=== PATIENT | male | born 1965 | race Caucasian/White ===

== ENCOUNTER 2022-02-01 10:51 | Observation (INO) | payer SELFPAY ==
[2022-02-01] VITALS (11 sets, daily range): BP systolic 116–127; BP diastolic 67–76; PULSE 52–78; RESP 16–26; TEMP 36.1–36.4; O2SAT 95–100; BMI 23.7
--- NOTE | 2022-02-01 11:02 | W.ED.CHESTPA ---
HPI - Chest Pain General: Chief Complaint: Chest Pain Stated Complaint: cp Time Seen by Provider: 02/01/22 11:02 History of Present Illness: Mr. Maldonado is a 56-year-old male with history of tobaccoism presenting to the emergency department due to chest pain. Onset of symptoms was during rest just after a break at work at approximately 10 or 1030 this morning. He reports sudden onset of severe squeezing chest pain with radiation down both arms. Associated cold feeling and shortness of breath as well as mild nausea. Course has persisted. No similar episodes in the past. No other specific changes in health, exacerbating, or alleviating factors identified. Onset (ago): minute(s) Timing of current episode: constant Prior episodes: No Onset: during rest Pain location: substernal Pain radiation: right arm and left arm Severity: severe Quality: tightness and heaviness Relieving factors: nothing Exacerbating factors: exertion Associated symptoms: Reports diaphoresis, dyspnea and nausea Review of Systems General: Reports: 10 or more systems reviewed and unremarkable except in HPI and below Const: Reports: diaphoresis Resp: Reports: dyspnea GI: Reports: nausea PFSH ED PFSH: Medical History No significant past medical history Surgical History H/O knee surgery Family History Other CAD (coronary artery disease) Social History Smoking and tobacco status: current every day smoker Physical Exam Const: COMMON NORMALS: alert GENERAL APPEARANCE: cooperative and well developed HENMT: COMMON NORMALS: normocephalic and atraumatic HEAD & SCALP: normocephalic and atraumatic THROAT: posterior oropharynx normal Eye: COMMON NORMALS: conjunctivae normal CONJUNCTIVA: Yes conjunctivae normal SCLERA: sclerae normal Neck/C-Spine: COMMON NORMALS: supple GENERAL: Yes trachea midline Resp: COMMON NORMALS: clear to auscultation bilaterally EFFORT & INSPECTION: Yes able to speak in complete sentences AUSCULTATION: clear to auscultation bilaterally Cardio: COMMON NORMALS: regular rate and regular rhythm RATE: regular rate RHYTHM: regular rhythm GI: COMMON NORMALS: Soft to palpation PALPATION: Yes Soft to palpation and No Tenderness to palpation present (GI) Extremity: GENERAL: Yes normal exam except as noted and No edema Neuro: COMMON NORMALS: moves all extremities SENSORIUM/ORIENTATION: Yes alert and No Orientation impaired Psych: COMMON NORMALS: mental status grossly normal and Normal thought process present THOUGHT PROCESS: Normal thought process present Course Vital Signs: Vital signs: Vital Signs Temperature 98.8 F 02/03/22 04:30 Pulse Rate 52 L 02/03/22 12:15 Respiratory Rate 16 02/03/22 12:15 Blood Pressure 104/65 02/03/22 12:15 Pulse Oximetry 97 02/03/22 12:15 Oxygen Delivery Me thod 02/03/22 08:00 MDM - Chest Pain Medical Decision Making 56-year-old gentleman presenting with chest pain. EKG shows sinus rhythm with nonspecific ST segment abnormalities. No STEMI. Labs notable for normal hematologic and metabolic panel. Delta troponin at 2 hours is negative. D-dimer elevated. Chest x-ray with no lobar consolidation or pneumothorax. During ED course patient received aspirin, nitroglycerin, and morphine. Upon reassessment patient continues to have chest discomfort. Given reported history as well as persistent chest pain agree that the patient requires further inpatient management for cardiac evaluation. He is not low risk by heart score. The results of ED evaluation were discussed with the patient including plan for admission due to requirement for level of care not available if discharged to prevent significant worsening/deterioration. Patient agreeable with plan. Discussed with hospitalist service who was agreeable to admit patient. Medical Records I reviewed the patient's medical records. Lab Data I reviewed the patient's lab results. 02/02/22 05:07 02/03/22 05:37 Radiology Impressions Chest X-Ray 02/01/22 11:08 Impression: Negative chest. Chest CTA 02/01/22 20:01 IMPRESSION: 1. No pulmonary embolism or pneumonia. 2. In the right lower lobe there is an 8 mm noncalcified nodule. 3. Bronchial wall thickening suggests bronchitis. For patients at low risk (minimal or absent history of smoking and of other known risk factors), recommend CT Chest at 6-12 months, then consider CT Chest at 18-24 months. For patients at high risk (history of smoking or of other known risk factors), recommend CT Chest at 6-12 months, then CT Chest at 18-24 months. (Reference: Fior) References: Fior Nickerson, et al. Guidelines for Management of Incidental Pulmonary Nodules Detected on CT Images: From the Fleischner Society 2017. Radiology. 2017;284(1):228-243. Laboratory Results WBC 6.6 10^3/uL (4.0-10.0) 02/01/22 11:18 RBC 4.49 10^6/uL (4.1-5.3) 02/01/22 11:18 Hgb 13.4 g/dL (11.7-16.6) 02/01/22 11:18 Hct 39.7 % (42.0-52.0) L 02/01/22 11:18 MCV 88.4 fl (80-94) 02/01/22 11:18 MCH 29.8 pg (28.0-34.0) 02/01/22 11:18 MCHC 33.8 g/dL (30.0-36.0) 02/01/22 11:18 RDW 12.5 % (12.1-15.1) 02/01/22 11:18 Plt Count 219 10^3/cmm (130-400) 02/01/22 11:18 MPV 9.0 fL (7.4-10.4) 02/01/22 11:18 Neut % (Auto) 53.0 % 02/01/22 11:18 Lymph % (Auto) 33.0 % 02/01/22 11:18 [place] % (Auto) 10.3 % 02/01/22 11:18 Eos % (Auto) 2.9 % 02/01/22 11:18 Baso % (Auto) 0.3 % 02/01/22 11:18 Neut # (Auto) 3.49 10^3/uL (1.8-7.7) 02/01/22 11:18 Lymph # (Auto) 2.2 10^3/uL (0.8-4.8) 02/01/22 11:18 [place] # (Auto) 0.7 10^3/uL (0.2-0.9) 02/01/22 11:18 Eos # (Auto) 0.2 10^3/uL (0.0-0.8) 02/01/22 11:18 Baso # (Auto) 0.0 10^3/uL (0.0-0.1) 02/01/22 11:18 Nucleated RBC % (auto) 0 % 02/01/22 11:18 Nucleated RBCs # 0.0 /100WBC 02/01/22 11:18 Sodium 138 mmol/L (136-145) 02/01/22 11:18 Potassium 3.5 mmol/L (3.5-5.1) 02/01/22 11:18 Chloride 104 mmol/L (98-107) 02/01/22 11:18 Carbon Dioxide 24 mmol/L (22-29) 02/01/22 11:18 Anion Gap 13.5 (5-19) 02/01/22 11:18 BUN 17 mg/dL (6-20) 02/01/22 11:18 Creatinine 1.0 mg/dL (0.7-1.2) 02/01/22 11:18 GFR Calculation 76.7 mL/min (90-130) L 02/01/22 11:18 Glucose 88 mg/dL (65-115) 02/01/22 11:18 Calculated Osmolality 287 mOsm/kg (285-295) 02/01/22 11:18 Calcium 9.7 mg/dL (8.5-10.5) 02/01/22 11:18 Total Bilirubin 0.4 mg/dL (0.15-1.2) 02/01/22 11:18 AST 15 U/L (0-40) 02/01/22 11:18 ALT 13 U/L (0-41) 02/01/22 11:18 Alkaline Phosphatase 69 U/L (40-130) 02/01/22 11:18 Troponin T Baseline 8 ng/L (0-15) 02/01/22 11:18 Troponin T 120 Minute 7.20 ng/L (0-15) 02/01/22 13:15 Delta Troponin T -0.8 ABS# (0-10) L 02/01/22 13:15 NT-Pro-B Natriuret Pep 15 pg/mL (0-125) 02/01/22 11:18 Total Protein 6.5 g/dL (6.6-8.7) L 02/01/22 11:18 Albumin 4.3 g/dL (3.5-5.2) 02/01/22 11:18 Globulin 2.2 g/dL (1.3-4.6) 02/01/22 11:18 Lipase 43 U/L (13-60) 02/01/22 11:18 Discharge Plan Discharge Patient Disposition: Placed in Observation Admit Provider: Harry Rivera Clinical Impression: Chest pain Coding Level of Care Code ED Medical Claims Representative for Chg Fwd Exam Comprehensive
--- NOTE | 2022-02-01 11:08 | XR_ITS ---
WS: [id number] Portable AP upright chest, 02/01/2022 Clinical Data: cp Comparison: None. Findings: No nodules, masses or effusions are seen. The heart is normal. The pulmonary vascularity is not increased. No pneumonia or pneumothorax is seen. There are monitor leads on the chest wall. Ther e is an apparent skinfold overlying the right apex. XR/XR chest 1V portable [id number] Impression: Negative chest.
--- NOTE | 2022-02-01 11:08 | ECG_ITS ---
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 Measurements Intervals [place] Rate: 72 P: 75 NC: 200 QRS: 84 QRSD: 86 T: 86 QT: 390 QTc: 428 Interpretive Statements SINUS RHYTHM SEPTAL MYOCARDIAL INFARCTION , OF INDETERMINATE AGE [40+ ms Q WAVE IN V1/V2] No previous ECG available for comparison Electronically Signed On 02-01-2022 15:02:19 BLADDER TIER by Dalton Gillette M.D. [email or web address] [email or web address]/store/[id number] f
[2022-02-01] MEDS: aspirin 81 mg Chew Tablet 324 MG PO (11:24)
[2022-02-01 11:27] LABS: Basophils % 0.3 %; Eosinophils # 0.2 10^3/uL (0.0-0.8); Eosinophils % 2.9 %; Hematocrit 39.7 % (42.0-52.0); Hemoglobin 13.4 g/dL (11.7-16.6); Lymphocytes # 2.2 10^3/uL (0.8-4.8); Mean Corpuscular HGB Conc 33.8 g/dL (30.0-36.0); Mean Corpuscular Hemoglobin 29.8 pg (28.0-34.0); Mean Corpuscular Volume 88.4 fl (80-94); Monocytes # 0.7 10^3/uL (0.2-0.9); Monocytes % 10.3 %; Neutrophils # 3.49 10^3/uL (1.8-7.7); Nucleated Red Blood Cells % 0 %; Platelet Count 219 10^3/cmm (130-400); Red Blood Count 4.49 10^6/uL (4.1-5.3); Red Cell Distribution Width 12.5 % (12.1-15.1); White Blood Count 6.6 10^3/uL (4.0-10.0)
[2022-02-01] MEDS: nitroglycerin 0.4 mg sublingual Tablet SUBLINGUAL ×2 (11:28→16:57)
[2022-02-01] MEDS: morphine 4 mg/mL SDV 1 mL IVP ×2 (11:28→14:04)
[2022-02-01 11:58] LABS: Troponin(5th) Baseline 8 ng/L (0-15)
[2022-02-01 12:06] LABS: Alanine Aminotransferase 13 U/L (0-41); Albumin Level 4.3 g/dL (3.5-5.2); Alkaline Phosphatase 69 U/L (40-130); Anion Gap 13.5 (5-19); Aspartate Amino Transferase 15 U/L (0-40); Blood Urea Nitrogen 17 mg/dL (6-20); Calcium 9.7 mg/dL (8.5-10.5); Carbon Dioxide 24 mmol/L (22-29); Chloride 104 mmol/L (98-107); Globulin 2.2 g/dL (1.3-4.6); Glomerular Filtration Rate 76.7 mL/min (90-130); Glucose 88 mg/dL (65-115); Lipase 43 U/L (13-60); NT Pro B Type Natriuretic Pept 15 pg/mL (0-125); Osmolality Calculated 287 mOsm/kg (285-295); Potassium 3.5 mmol/L (3.5-5.1); Sodium 138 mmol/L (136-145); Total Bilirubin 0.4 mg/dL (0.15-1.2); Total Protein 6.5 g/dL (6.6-8.7)
--- NOTE | 2022-02-01 12:14 | ECG_ITS ---
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 Measurements Intervals [place] Rate: 61 P: 61 SC: 195 QRS: 78 QRSD: 98 T: 70 QT: 416 QTc: 420 Interpretive Statements SINUS RHYTHM Compared to ECG 02/01/2022 11:01:57 Myocardial infarct finding no longer present Electronically Signed On 02-01-2022 15:06:12 GEOSPATIAL ENGINEER by Dalton Gillette M.D. [email or web address] hospitalXan[facility].[employer]/store/OM/[id number]
[2022-02-01 14:29] LABS: Troponin 5 2HR Delta -0.8 ABS# (0-10)
--- NOTE | 2022-02-01 14:46 | P.HP_ITS ---
Providers/Chief Complaint Primary Care Provider: Corina Bustillo MD Chief Complaint: cp History of Present Illness Shawn Maldonado is a 56 year old male who present to the hospital for treatment of chest pain. 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 He started experiencing chest pain which he described as chest tightness it did not get better until he received morphine on nitroglycerin. Troponins negative EKG without ischemic changes, I have requested Dr. Yancey to see him as he would require coronary angiogram he would not need cardiac stress test, with nitroglycerin he does get bradycardic. Patient states he has been smoking 1-1/2 pack of cigarettes for last 40 years Patient stating family history positive for aortic stenosis and his father of complications related to aortic stenosis mother of coronary disease in her 80s. Review of Systems Const: Denies: fever(s) Eyes: Denies: change in vision ENMT: Denies: throat pain Card: Reports: chest pain Resp: Denies: dyspnea GI: Denies: abdominal pain : Denies: flank pain Musc: Denies: neck pain Skin/Breast: Denies: rash Neuro: Denies: headache(s) Psych: Reports: anxiety Endo: Denies: polyuria Arnoldo/Lymph: Denies: easy bruising All/Imm: Denies: urticaria Medications/Allergies Home Medications Medication Instructions Recorded Confirmed Last Taken Type Fish Mox 250 Mg 1 tab PO BID 02/01/22 02/01/22 02/01/22 History Allergies Allergy/AdvReac Type Severity Reaction Status Date / Time No Known Allergies Allergy Unverified 02/01/22 11:26 PFSH Acute PFSH: Medical History No significant past medical history Surgical History H/O knee surgery Family History Other CAD (coronary artery disease) Social History Smoking and tobacco status: current every day smoker Vitals/I&O/Wt Last Vital Signs Temp 97.0 F L 02/01/22 11:01 Pulse 60 02/01/22 11:40 Resp 16 02/01/22 14:04 BP 118/67 02/01/22 11:40 Pulse Ox 98 02/01/22 14:04 O2 Del Method 02/01/22 11:15 Physical Exam Narrative: Patient is laying supine Currently complaining chest pain is 2/10 Hemodynamically stable Bradycardic Awake and alert Nonfocal neuro exam at the bedside Looks euvolemic S1, S2 Abdomen soft No audible stridor or wheezing Data : 02/01/22 11:18 02/01/22 11:18 A&P Assessment and plan (1) Unstable angina: Plan Unstable angina Patient will need coronary angiogram Atypical chest pain Troponins unremarkable EKG without ischemic or infarct changes Check D-dimer Patient is getting bradycardic with Nitro, would avoid for now Will add normal saline Patient is stating he is DNR/DNI, he is stating in case of cardiac arrest he does not want to be put on a ventilator, he does not want chest compressions or defibrillation His is at the bedside N.p.o. after midnight Dr. Rivera has been consulted DVT prophylaxis Lovenox Active smoker Attestations Medical Necessity Statement*: Anticipating more than 2 midnights Time Spent in Patient Care: 40 Coding Level of Care Code Acute Workforce Management Analyst for Rolando Aguayo Diagnoses Unstable angina I20.0
--- NOTE | 2022-02-01 14:48 | USCV_ITS ---
Shawn Maldonado Age: 56 Gender: M : 1965 Exam Date: 02/01/2022 15:16 Ordering Phys: Ana Hall MD Technologist: JORGE [place] [facility] [place]: UA, CHEST PAIN BP: 112 / 67 HR: 56 Rhythm: Sinus Technical Quality: Adequate MEASUREMENTS (Male / Female) Normal Values 2D ECHO LVOT Diameter 2.0 cm LV Ejection Fraction MOD 2C 70.3 % LV Ejection Fraction 2C AL 69.6 % LA Diameter 2.5 cm LA Width 2.9 cm LA Height 4.0 cm RA Width 3.6 cm RA Height 3.9 cm Aorta at Sinotubular Diameter 2.7 cm IVC Diameter 1.7 cm M-MODE Aortic Annulus Diameter 3.4 cm LA Ao Ratio MM 0.8 MV E Point Septal Separation 0.3 cm DOPPLER AV Peak Velocity 120.3 cm/s LVOT Peak Velocity 110.0 cm/s AV Area Cont Eq vti 3.1 cm squared AV Area Cont Eq pk 2.9 cm squared MV Peak Velocity 117.0 cm/s MV Area PHT 3.1 cm squared Mitral E to A Ratio 1.2 MV E' Velocity 63.0 cm/s Mitral E to MV E' Ratio 9.7 Mitral E to LV E' Lateral Ratio 8.5 Mitral E to LV E' Septal Ratio 11.5 TR Peak Velocity 167.1 cm/s TR Peak Gradient 11.2 mmHg TR Mean Velocity 138.1 cm/s TR Mean Gradient 8.0 mmHg TR Velocity Time Integral 57.0 cm TV Peak E Velocity 68.0 cm/s Right Atrial Pressure 3.0 mmHg Pulmonary Artery Systolic Pressu 14.2 mmHg FINDINGS Left Ventricle Normal left ventricular size and systolic function, EF 70 %. Mild hypokinesia of the basal inferior wall segment Right Ventricle The right ventricle is normal in size and function. Right Atrium The right atrium is normal in size. Left Atrium The left atrium is normal in size. Mitral Valve Mild mitral valve regurgitation. Aortic Valve No gross abnormalities noted Tricuspid Valve No gross abnormalities noted Pulmonic Valve No gross abnormalities noted Pericardium Normal pericardium without effusion. Aorta Normal ascending aorta dimension. IVC Normal inferior vena cava. CONCLUSIONS Normal left ventricular size and systolic function, EF 70 %. Mild hypokinesia of the basal inferior wall segment. Mild mitral valve regurgitation. There is no pericardial effusion. There are no intracardiac masses. Normal cardiac chamber sizes. No significant stenotic or relative lesions. No similar previous studies are available for comparison Dr Harry Rivera MD [facility] (Electronically Signed) Final Date: 01 February 2022 19:43 S
--- NOTE | 2022-02-01 15:17 | PC.NURSE ---
report called to Annalisa on med surg 1515. will take pt upstairs on monitor after echo is complete
[2022-02-01] MEDS: morphine IR 15 mg Tablet PO ×2 (16:58→22:34)
[2022-02-01] MEDS: enoxaparin 40 mg/0.4 mL Syringe SUBCUT (16:59)
[2022-02-01 17:04] LABS: Estmated Average Glucose 88; Hemoglobin A1C 4.7 % (4.0-6.0)
--- NOTE | 2022-02-01 17:08 | ECG_ITS ---
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 Measurements Intervals [place] Rate: 51 P: 64 IL: 207 QRS: 73 QRSD: 118 T: 74 QT: 447 QTc: 413 Interpretive Statements SINUS BRADYCARDIA MODERATE INTRAVENTRICULAR CONDUCTION DELAY [110+ ms QRS DURATION] Compared to ECG 02/01/2022 12:14:14 Intraventricular conduction delay now present Sinus rhythm no longer present Electronically Signed On 02-03-2022 15:17:30 OPERATIONS PLANNER by Harry Rivera M.D. [email or web address] hospitalBetter [facility].[employer]/store/OM/[id number]
--- NOTE | 2022-02-01 17:16 | PC.NURSE ---
nitro stat 0.4 mg with msir reieves pts chest pain
[2022-02-01 17:55] LABS: Troponin 5 6HR 7.08 ng/L (0-15)
--- NOTE | 2022-02-01 17:59 | PC.NURSE ---
PT HEART RATE 54-58 DR ESPINOZA NOTIFIED VERBAL TO HOLD NITRO PASTE
[2022-02-01 18:05] LABS: Troponin 5 6HR Delta -0.92 ng/L (0-12)
[2022-02-01] MEDS: sodium chloride 0.9% 1,000 ML 75 ML IV (18:52)
[2022-02-01 19:06] LABS: D Dimer 1.33 ug/mIFEU (0-0.59)
[2022-02-01 19:08] LABS: Chol HDL Ratio 3.66 mg/dL (1.0-5.00); Cholesterol 139 mg/dL (0-200); HDL Cholesterol 38 mg/dL (60-100); LDL Cholesterol Calculated 91 mg/dL (50-129); LDL HDL Ratio 2.39 RATIO (0.00-3.22); Triglycerides 51 mg/dL (0-150)
--- NOTE | 2022-02-01 19:21 | PM.CONSULT ---
Providers/Reason For Consult Consulting Physician/Specialty*: Karena Rivera MD/cardiology Reason for Consult*: Patient with prolonged episode of chest pain Attending Physician: Ana Hall MD Primary Care Provider: Corina Bustillo MD History of Present Illness History of Present Illness Shawn Maldonado is a 56 year old male with no significant past medical history except for the history of heavy smoking abuse is presenting with a sternal onset of chest pain. Cardiology consult is requested for further cardiac evaluation recommendations. 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 The pain was radiating across the chest to both shoulders and to both arms. He also had some tingling and numbness of the extremities. He had some shortness of breath and sweaty. Intensity of the pain was 10/10. Because of the persistent pain, he came to the emergency room. In the emergency room, he was given IV morphine and sublingual nitro. The pain started subsiding. As of now, the nurses the pain is 3/10. According the patient, the pain never completely went away. He has no fever or chills. No other specific complaints. He has a smoker's cough. He is has been smoking 1-1 and half pack a day for the last 49 years. No alcohol abuse or renal substance abuse. His brother had a myocardial infarction at the age of 57. Father had a myocardial infarction the age of 54. He of congestive heart failure at age of 64. Grandfather had a myocardial infarction in his 60s. No other relevant family history. Pulmonary symptoms with a deep inspiration. Patient also has some chest wall tenderness. Review of Systems Narrative: CONSTITUTIONAL: No fever or chills. EYES: No blurring of vision or other visual disturbances lately. ENT: No hoarseness of voice, auditory disturbances or sore throat. CARDIOVASCULAR: As mentioned above. RESPIRATORY: He has some shortness of breath with activities. He also has a smoker's cough. GASTROINTESTINAL: No hematemesis or melena. GENITOURINARY: No dysuria or hematuria. INTEGUMENTARY: No skin rashes or history of skin cancer. NEURO: No transient ischemic attacks or amaurosis. PSYCHIATRIC: No history of psychosis or major depression. HEMATOLOGIC: No bleeding disorders or significant anemia. ENDOCRINE: No diabetes or hypothyroidism. MUSCULOSKELETAL: No recent joint pain or swelling. ALLERGY/IMMUNOLOGY: As mentioned above. Medications/Allergies Home Medications Medication Instructions Recorded Confirmed Last Taken Type Fish Mox 250 Mg 1 tab PO BID 02/01/22 02/01/22 02/01/22 History Allergies Allergy/AdvReac Type Severity Reaction Status Date / Time No Known Allergies Allergy Unverified 02/01/22 11:26 Current Medications Generic Name Dose Route Start Last Admin Trade Name Freq PRN Reason Stop Dose Admin Enoxaparin Sodium 40 mg 02/01/22 16:11 02/01/22 16:59 Enoxaparin 40 Mg/0.4 Ml Syringe SUBCUT 40 mg Q24H EARL Administration Sodium Chloride 1,000 mls @ 75 mls/hr 02/01/22 18:15 02/01/22 18:52 Sodium Chloride 0.9% IV 75 mls/hr .[id number] EARL Administration Morphine Sulfate 15 mg 02/01/22 16:11 02/01/22 16:58 Morphine Ir 15 Mg Tablet PO 15 mg Q6H PRN Administration pAIN PFSH Acute PFSH: Medical History No significant past medical history Surgical History H/O knee surgery Family History Other CAD (coronary artery disease) Social History Smoking and tobacco status: current every day smoker Vitals/I&O/Wt Last Vital Signs Temp 97.0 F L 02/01/22 11:01 Pulse 78 02/01/22 18:15 Resp 18 02/01/22 18:15 BP 118/67 02/01/22 11:40 Pulse Ox 95 02/01/22 18:15 O2 Del Method 02/01/22 18:15 02/01/22 02/01/22 02/01/22 06:59 14:59 22:59 Intake Total 240 / 240 Balance 240 / 240 Weight last 48 hrs Weight 185 lb Physical Exam Narrative: GENERAL: The patient is alert and oriented times three. Not in any acute distress. HEENT: No significant pallor, icterus or lymphadenopathy.Oral cavity: There are no mucous membrane lesions. NECK: Trachea appears to be central. No masses noted. No JVD or thyromegaly appreciated. RESPIRATORY: Chest is symmetrical. No intercostals muscle retraction or any accessory muscle activation. Chest wall tenderness present in the mid substernal region. Breath sounds are heard bilaterally. No rales or rhonchi heard. No evidence of any consolidation. BREASTS: Deferred. HEART: The heart sounds are normal. No S3 or S4. No significant murmurs. No pericardial rub ABDOMEN: No vessel pulsations or distention. No tenderness. No organomegaly appreciated. Bowel sounds are normally heard. : Deferred. RECTAL: Deferred. LYMPHATIC: No lymphadenopathy noted in the neck. EXTREMITIES: No edema or cyanosis. No clubbing. MUSCULOSKELETAL: No acute joint deformities or swelling SKIN: There are no significant rashes or ecchymosis NEUROPSYCHIATRIC: The patient is alert and oriented x3. Appears to be in a good mood. No tremors or rigidity noted. Data : 02/01/22 11:18 02/01/22 11:18 Other Labs: Laboratory Last Values WBC 6.6 10^3/uL (4.0-10.0) 02/01/22 11:18 RBC 4.49 10^6/uL (4.1-5.3) 02/01/22 11:18 Hgb 13.4 g/dL (11.7-16.6) 02/01/22 11:18 Hct 39.7 % (42.0-52.0) L 02/01/22 11:18 MCV 88.4 fl (80-94) 02/01/22 11:18 MCH 29.8 pg (28.0-34.0) 02/01/22 11:18 MCHC 33.8 g/dL (30.0-36.0) 02/01/22 11:18 RDW 12.5 % (12.1-15.1) 02/01/22 11:18 Plt Count 219 10^3/cmm (130-400) 02/01/22 11:18 MPV 9.0 fL (7.4-10.4) 02/01/22 11:18 Neut % (Auto) 53.0 % 02/01/22 11:18 Lymph % (Auto) 33.0 % 02/01/22 11:18 [place] % (Auto) 10.3 % 02/01/22 11:18 Eos % (Auto) 2.9 % 02/01/22 11:18 Baso % (Auto) 0.3 % 02/01/22 11:18 Neut # (Auto) 3.49 10^3/uL (1.8-7.7) 02/01/22 11:18 Lymph # (Auto) 2.2 10^3/uL (0.8-4.8) 02/01/22 11:18 [place] # (Auto) 0.7 10^3/uL (0.2-0.9) 02/01/22 11:18 Eos # (Auto) 0.2 10^3/uL (0.0-0.8) 02/01/22 11:18 Baso # (Auto) 0.0 10^3/uL (0.0-0.1) 02/01/22 11:18 Nucleated RBC % (auto) 0 % 02/01/22 11:18 Nucleated RBCs # 0.0 /100WBC 02/01/22 11:18 D-Dimer 1.33 ug/mIFEU (0-0.59) H 02/01/22 18:31 Sodium 138 mmol/L (136-145) 02/01/22 11:18 Potassium 3.5 mmol/L (3.5-5.1) 02/01/22 11:18 Chloride 104 mmol/L (98-107) 02/01/22 11:18 Carbon Dioxide 24 mmol/L (22-29) 02/01/22 11:18 Anion Gap 13.5 (5-19) 02/01/22 11:18 BUN 17 mg/dL (6-20) 02/01/22 11:18 Creatinine 1.0 mg/dL (0.7-1.2) 02/01/22 11:18 GFR Calculation 76.7 mL/min (90-130) L 02/01/22 11:18 Glucose 88 mg/dL (65-115) 02/01/22 11:18 Estimat Average Glucose 88 02/01/22 16:26 Hemoglobin A1c 4.7 % (4.0-6.0) 02/01/22 16:26 Calculated Osmolality 287 mOsm/kg (285-295) 02/01/22 11:18 Calcium 9.7 mg/dL (8.5-10.5) 02/01/22 11:18 Total Bilirubin 0.4 mg/dL (0.15-1.2) 02/01/22 11:18 AST 15 U/L (0-40) 02/01/22 11:18 ALT 13 U/L (0-41) 02/01/22 11:18 Alkaline Phosphatase 69 U/L (40-130) 02/01/22 11:18 Troponin T Baseline 8 ng/L (0-15) 02/01/22 11:18 Troponin T 120 Minute 7.20 ng/L (0-15) 02/01/22 13:15 Delta Troponin T -0.8 ABS# (0-10) L 02/01/22 13:15 Troponin T Hi Sens 6Hr 7.08 ng/L (0-15) 02/01/22 17:06 Troponin T Hi Sens 6Hr Delta -0.92 ng/L (0-12) L 02/01/22 17:06 NT-Pro-B Natriuret Pep 15 pg/mL (0-125) 02/01/22 11:18 Total Protein 6.5 g/dL (6.6-8.7) L 02/01/22 11:18 Albumin 4.3 g/dL (3.5-5.2) 02/01/22 11:18 Globulin 2.2 g/dL (1.3-4.6) 02/01/22 11:18 Triglycerides 51 mg/dL (0-150) 02/01/22 18:31 Cholesterol 139 mg/dL (0-200) 02/01/22 18:31 LDL Cholesterol, Calc 91 mg/dL (50-129) 02/01/22 18:31 HDL Cholesterol 38 mg/dL (60-100) L 02/01/22 18:31 LDL/HDL Ratio 2.39 RATIO (0.00-3.22) 02/01/22 18:31 Cholesterol/HDL Ratio 3.66 mg/dL (1.0-5.00) 02/01/22 18:31 Lipase 43 U/L (13-60) 02/01/22 11:18 Echo: My impression: Normal left ventricular size and systolic function, EF 70 %.? ?Mild hypokinesia of the basal inferior wall segment. ?Mild mitral valve regurgitation. ?There is no pericardial effusion. ?There are no intracardiac masses. ?Normal cardiac chamber sizes. ?No significant stenotic or relative lesions. ?No similar previous studies are available for comparison EKG 1: My Interpretation: Sinus bradycardia with a rate of [address]-T changes. Some nonspecific IVCD. EKG computer-generated impression: Chest X-Ray 02/01/22 11:08 Impression: Negative chest. A&P Assessment and plan (1) Chest pain: The etiology of the patient's chest pain is not clear. No echocardiographic evidence of wall motion normalities, may necessitate a right coronary artery ischemia. However EKG is unremarkable. In spite of him having chest pain for the last more than 10 hours, he has no enzyme elevation. The pleuritic component of the chest pain may suggest a musculoskeletal/pulmonary pathology. Possibility of an aortic dissection also cannot be excluded. For further evaluation of the patient symptoms, a CTA of the chest would be appropriate. This was discussed with patient detail which he understood well and consented to proceed. (2) Smoking addiction: Patient strongly advised to quit smoking. (3) FH: premature coronary heart disease: There is strong family history of premature atherosclerotic heart disease is a concern. Once other etiologies are ruled out, we may consider doing a cardiac catheterization, to further evaluate the coronary status. Plan Based on the results of the above tests and the patient's clinical progress, further recommendations will be made. Thank you for the opportunity to evaluate this patient and make these recommendations Consult Attestations Medical Necessity Statement: Patient requires continued hospital stay for close monitoring and further management Coding Level of Care Code Acute Pre Owned Sales Manager for Chg Fwd History Detailed Exam Detailed Medical Decision Making Moderate Complexity Diagnoses Chest pain R07.9 Smoking addiction F17.200 FH: premature coronary heart disease Z82.49
[2022-02-01] MEDS: ondansetron 2 mg/ML SDV 2 mL 4 MG IVP (19:37)
[2022-02-01] MEDS: acetaminophen 500 mg Tablet PO (19:37)
--- NOTE | 2022-02-01 20:01 | CTR_ITS ---
PROCEDURE INFORMATION: Exam: CTA Chest With Contrast Exam date and time: 02/01/2022 8:34 PM Age: 56 years old Clinical indication: Chest wall pain and on breathing; Additional info: Pleuritic type of pain, sudden onset of severe pain , continues since 10 am- rule TECHNIQUE: Imaging protocol: Computed tomographic angiography of the chest with contrast. 3D rendering (Not supervised by radiologist): MIP and/or 3D reconstructed images were created by the technologist. Radiation optimization: All CT scans at this facility use at least one of these dose optimization techniques: automated exposure control; mA and/or kV adjustment per patient size (includes targeted exams where dose is matched to clinical indication); or iterative reconstruction. Contrast material: OMNIPAQUE 350; Contrast volume: 200 ml; Contrast route: INTRAVENOUS (IV); COMPARISON: CR XR chest 1V portable [id number] 02/01/2022 12:12 PM RADIATION DOSE METRICS: Total DLP (mGy-cm): 769.82 FINDINGS: Pulmonary arteries: Overall exam quality is good for evaluating the pulmonary arteries. There are no intraluminal filling defects to indicate pulmonary embolism. Aorta: The ascending thoracic aorta is mildly ectatic up to 3.7 cm. The descending thoracic aorta is normal in size. Lungs: There is no pneumonia, mass or pleural effusion. Mild bibasilar dependent atelectasis. In the medial portion of the right lower lobe there is a solid noncalcified nodule measuring 8 x 5 mm. There is mild generalized bronchial wall thickening suggesting bronchitis. Pleural spaces: See Lungs finding. Heart: Overall heart size is normal. Scattered calcified plaques in the coronary arteries. Lymph nodes: Unremarkable. No enlarged lymph nodes. Bones/joints: Unremarkable. No acute fracture. Soft tissues: Unremarkable. CT/CT angio chest [id number] IMPRESSION: 1. No pulmonary embolism or pneumonia. 2. In the right lower lobe there is an 8 mm noncalcified nodule. 3. Bronchial wall thickening suggests bronchitis. For patients at low risk (minimal or absent history of smoking and of other known risk factors), recommend CT Chest at 6-12 months, then consider CT Chest at 18-24 months. For patients at high risk (history of smoking or of other known risk factors), recommend CT Chest at 6-12 months, then CT Chest at 18-24 months. (Reference: Fior) References: Fior Nickerson et al. Guidelines for Management of Incidental Pulmonary Nodules Detected on CT Images: From the Fleischner Society 2017. Radiology. 2017;284(1):228-243.
[2022-02-01] MEDS: iohexol 350 mg/mL 500 mL Btl (per mL) IV (20:42)
[2022-02-01] MEDS: atorvastatin 40 mg Tablet PO (21:29)
[2022-02-02] VITALS (33 sets, daily range): BP systolic 93–139; BP diastolic 51–81; PULSE 50–72; RESP 6–25; TEMP 36.3–37.4; O2SAT 93–99
[2022-02-02 05:59] LABS: Basophils % 0.6 %; Eosinophils # 0.3 10^3/uL (0.0-0.8); Eosinophils % 5.5 %; Hemoglobin 13.1 g/dL (11.7-16.6); Lymphocytes # 1.9 10^3/uL (0.8-4.8); Lymphocytes % 36.8 %; Mean Corpuscular HGB Conc 32.8 g/dL (30.0-36.0); Mean Corpuscular Volume 91.7 fl (80-94); Mean Platelet Volume 9.3 fL (7.4-10.4); Monocytes # 0.5 10^3/uL (0.2-0.9); Monocytes % 9.6 %; Neutrophils % 47.3 %; Nucleated Red Blood Cells % 0 %; Platelet Count 190 10^3/cmm (130-400); Red Blood Count 4.36 10^6/uL (4.1-5.3); Red Cell Distribution Width 12.7 % (12.1-15.1); White Blood Count 5.1 10^3/uL (4.0-10.0)
[2022-02-02 06:22] LABS: Anion Gap 13.2 (5-19); Blood Urea Nitrogen 15 mg/dL (6-20); Calcium 8.7 mg/dL (8.5-10.5); Carbon Dioxide 23 mmol/L (22-29); Chloride 107 mmol/L (98-107); Creatinine Clr Calc Pharmacy 94.3979; Glomerular Filtration Rate 76.7 mL/min (90-130); Glucose 90 mg/dL (65-115); Osmolality Calculated 288 mOsm/kg (285-295); Potassium 4.2 mmol/L (3.5-5.1); Sodium 139 mmol/L (136-145)
[2022-02-02] MEDS: acetaminophen 500 mg Tablet PO (07:27)
--- NOTE | 2022-02-02 08:36 | P.PN_ITS ---
Subjective Subjective: Patient continues to have the chest pain. He had a CT yesterday which revealed no is a pulmonary embolism. The ascending aorta is mildly dilated. No evidence of dissection Medications: Medication Review Details: Current Medications Acetaminophen (Acetaminophen 500 Mg Tablet) 500 mg PO Q4H PRN PRN Reason: fever Last Admin: 02/02/22 07:27 Dose: 500 mg Albuterol/Ipratropium (Ipratropium-Albuterol 3 Ml Neb) 3 ml INHALATION Q6H PRN PRN Reason: SHORTNESS OF BREATH Aspirin (Aspirin 81 Mg Ec Tablet) 81 mg PO DAILY [facility] Atorvastatin Calcium (Atorvastatin 40 Mg Tablet) 40 mg PO BEDTIME [facility] Last Admin: 02/01/22 21:29 Dose: 40 mg Enoxaparin Sodium (Enoxaparin 40 Mg/0.4 Ml Syringe) 40 mg SUBCUT Q24H [facility] Last Admin: 02/01/22 16:59 Dose: 40 mg Sodium Chloride (Sodium Chloride 0.9%) 1,000 mls @ 75 mls/hr IV .[id number] [facility] Last Admin: 02/01/22 18:52 Dose: 75 mls/hr Morphine Sulfate (Morphine Ir 15 Mg Tablet) 15 mg PO Q6H PRN PRN Reason: pAIN Last Admin: 02/01/22 22:34 Dose: 15 mg Ondansetron HCl (Ondansetron 2 Mg/Ml Sdv 2 Ml) 4 mg IVP Q6H PRN PRN Reason: NAUSEA AND VOMITING Last Admin: 02/01/22 19:37 Dose: 4 mg Vitals/I&O/Wt Last Vital Signs Temp 98.0 F 02/02/22 07:50 Pulse 58 L 02/02/22 07:50 Resp 16 02/02/22 07:50 BP 106/57 02/02/22 07:50 Pulse Ox 97 02/02/22 07:50 O2 Del Method 02/02/22 07:50 02/01/22 02/02/22 02/02/22 22:59 06:59 14:59 Intake Total 340 / 340 Output Total 600 / 600 Balance 340 / 340 -600 / -260 Weight last 48 hrs Weight 185 lb Physical Exam Narrative: GENERAL: The patient is alert and oriented times three. Not in any acute distress. HEENT: No significant pallor, icterus or lymphadenopathy.Oral cavity: There are no mucous membrane lesions. NECK: Trachea appears to be central. No masses noted. No JVD or thyromegaly a ppreciated. RESPIRATORY: Chest is symmetrical. No intercostals muscle retraction or any accessory muscle activation. Chest wall tenderness present in the mid substernal region. Breath sounds are heard bilaterally. No rales or rhonchi heard. No evidence of any consolidation. BREASTS: Deferred. HEART: The heart sounds are normal. No S3 or S4. No significant murmurs. No pericardial rub ABDOMEN: No vessel pulsations or distention. No tenderness. No organomegaly appreciated. Bowel sounds are normally heard. : Deferred. RECTAL: Deferred. LYMPHATIC: No lymphadenopathy noted in the neck. EXTREMITIES: No edema or cyanosis. No clubbing. MUSCULOSKELETAL: No acute joint deformities or swelling SKIN: There are no significant rashes or ecchymosis NEUROPSYCHIATRIC: The patient is alert and oriented x3. Appears to be in a good mood. No tremors or rigidity noted. Data : 02/02/22 05:07 02/02/22 05:07 Other Labs: Laboratory Last Values WBC 5.1 10^3/uL (4.0-10.0) 02/02/22 05:07 RBC 4.36 10^6/uL (4.1-5.3) 02/02/22 05:07 Hgb 13.1 g/dL (11.7-16.6) 02/02/22 05:07 Hct 40.0 % (42.0-52.0) L 02/02/22 05:07 MCV 91.7 fl (80-94) 02/02/22 05:07 MCH 30.0 pg (28.0-34.0) 02/02/22 05:07 MCHC 32.8 g/dL (30.0-36.0) 02/02/22 05:07 RDW 12.7 % (12.1-15.1) 02/02/22 05:07 Plt Count 190 10^3/cmm (130-400) 02/02/22 05:07 MPV 9.3 fL (7.4-10.4) 02/02/22 05:07 Neut % (Auto) 47.3 % 02/02/22 05:07 Lymph % (Auto) 36.8 % 02/02/22 05:07 [place] % (Auto) 9.6 % 02/02/22 05:07 Eos % (Auto) 5.5 % 02/02/22 05:07 Baso % (Auto) 0.6 % 02/02/22 05:07 Neut # (Auto) 2.40 10^3/uL (1.8-7.7) 02/02/22 05:07 Lymph # (Auto) 1.9 10^3/uL (0.8-4.8) 02/02/22 05:07 [place] # (Auto) 0.5 10^3/uL (0.2-0.9) 02/02/22 05:07 Eos # (Auto) 0.3 10^3/uL (0.0-0.8) 02/02/22 05:07 Baso # (Auto) 0.0 10^3/uL (0.0-0.1) 02/02/22 05:07 Nucleated RBC % (auto) 0 % 02/02/22 05:07 Nucleated RBCs # 0.0 /100WBC 02/02/22 05:07 D-Dimer 1.33 ug/mIFEU (0-0.59) H 02/01/22 18:31 Sodium 139 mmol/L (136-145) 02/02/22 05:07 Potassium 4.2 mmol/L (3.5-5.1) 02/02/22 05:07 Chloride 107 mmol/L (98-107) 02/02/22 05:07 Carbon Dioxide 23 mmol/L (22-29) 02/02/22 05:07 Anion Gap 13.2 (5-19) 02/02/22 05:07 BUN 15 mg/dL (6-20) 02/02/22 05:07 Creatinine 1.0 mg/dL (0.7-1.2) 02/02/22 05:07 GFR Calculation 76.7 mL/min (90-130) L 02/02/22 05:07 Glucose 90 mg/dL (65-115) 02/02/22 05:07 Estimat Average Glucose 88 02/01/22 16:26 Hemoglobin A1c 4.7 % (4.0-6.0) 02/01/22 16:26 Calculated Osmolality 288 mOsm/kg (285-295) 02/02/22 05:07 Calcium 8.7 mg/dL (8.5-10.5) 02/02/22 05:07 Magnesium 2.0 mg/dL (1.7-2.3) 02/02/22 05:07 Total Bilirubin 0.4 mg/dL (0.15-1.2) 02/01/22 11:18 AST 15 U/L (0-40) 02/01/22 11:18 ALT 13 U/L (0-41) 02/01/22 11:18 Alkaline Phosphatase 69 U/L (40-130) 02/01/22 11:18 Troponin T Baseline 8 ng/L (0-15) 02/01/22 11:18 Troponin T 120 Minute 7.20 ng/L (0-15) 02/01/22 13:15 Delta Troponin T -0.8 ABS# (0-10) L 02/01/22 13:15 Troponin T Hi Sens 6Hr 7.08 ng/L (0-15) 02/01/22 17:06 Troponin T Hi Sens 6Hr Delta -0.92 ng/L (0-12) L 02/01/22 17:06 NT-Pro-B Natriuret Pep 15 pg/mL (0-125) 02/01/22 11:18 Total Protein 6.5 g/dL (6.6-8.7) L 02/01/22 11:18 Albumin 4.3 g/dL (3.5-5.2) 02/01/22 11:18 Globulin 2.2 g/dL (1.3-4.6) 02/01/22 11:18 Triglycerides 51 mg/dL (0-150) 02/01/22 18:31 Cholesterol 139 mg/dL (0-200) 02/01/22 18:31 LDL Cholesterol, Calc 91 mg/dL (50-129) 02/01/22 18:31 HDL Cholesterol 38 mg/dL (60-100) L 02/01/22 18:31 LDL/HDL Ratio 2.39 RATIO (0.00-3.22) 02/01/22 18:31 Cholesterol/HDL Ratio 3.66 mg/dL (1.0-5.00) 02/01/22 18:31 Lipase 43 U/L (13-60) 02/01/22 11:18 A&P Assessment and plan (1) Chest pain: In view of the patient's ongoing chest pain, noted to further evaluate the coronary status, a cardiac catheterization would be appropriate. This was discussed with the patient in detail. The risk of bleeding, hematoma, vascular injury, myocardial infarction, CVA, renal failure and other concomitant complications were explained in detail. Patient understood this well and consented to proceed. We may go ahead and do scheduled with this in the hospital as early as possible. The risk of bleeding, hematoma, vascular injury, myocardial infarction, CVA, renal failure and other concomitant complications were explained in detail. (2) FH: premature coronary heart disease: There is strong family history of premature atherosclerotic heart disease is a concern. Once other etiologies are ruled out, we may consider doing a cardiac catheterization, to further evaluate the coronary status. (3) Smoking addiction: Patient strongly advised to quit smoking. (4) Dyslipidemia: May be started on Lipitor 40 mg p.o. daily. Plan Based on the results of the above tests and the patient's clinical progress, further management decisions will be made Attestations Medical Necessity Statement*: Patient requires continued hospital stay for close monitoring and further management Coding Level of Care Code Acute Corporate Receptionist for Chg Fwd History Detailed Exam Detailed Medical Decision Making Moderate Complexity Diagnoses Chest pain R07.9 FH: premature coronary heart disease Z82.49 Smoking addiction F17.200 Dyslipidemia E78.5
[2022-02-02] MEDS: sodium chloride 0.9% 1,000 ML 75 ML IV ×2 (09:28→21:19)
--- NOTE | 2022-02-02 09:31 | PC.NURSE ---
dr kodi becking pts asa 81mg this AM as pt is going for a angiogram
--- NOTE | 2022-02-02 10:02 | PM.PN ---
Subjective Subjective: Patient is still complaining of chest pain CTA rule out aortic dissection No signs of PE Pulmonary nodule Bronchial wall thickening with bronchitis Vitals/I&O/Wt Last Vital Signs Temp 98.0 F 02/02/22 07:50 Pulse 63 02/02/22 09:17 Resp 18 02/02/22 09:17 BP 106/57 02/02/22 07:50 Pulse Ox 93 02/02/22 09:17 O2 Del Method 02/02/22 09:17 02/01/22 02/02/22 02/02/22 22:59 06:59 14:59 Intake Total 340 / 340 1000 / 1000 Output Total 600 / 600 Balance 340 / 340 -600 / -260 1000 / 1000 Weight last 48 hrs Weight 83.915 kg Physical Exam Narrative: Awake and alert S1, S2 Hemodynamic stable Active chest pain at the bedside Echo looks dehydrated Abdomen soft Nonfocal neuro exam Currently on room air Data : 02/02/22 05:07 02/02/22 05:07 A&P Assessment and plan (1) FH: premature coronary heart disease: (2) Smoking addiction: (3) Unstable angina: Plan Patient most likely would need an angiogram today No sign of aortic dissection or PE Bronchitis on CT chest detected Pulmonary nodule Counseled on smoking cessation Patient is willing to quit cold turkey along with his Hemodynamically stable Complaining of persistent dull pain Will touch this with cardiology if they are planning for angiogram today N.p.o. Full code DVT prophylaxis on board Attestations Medical Necessity Statement*: Continue medical management Time Spent in Patient Care: 30 Coding Level of Care Code Acute Cementer Machine for [facility] Fwd Diagnoses FH: premature coronary heart disease Z82.49 Smoking addiction F17.200 Unstable angina I20.0
--- NOTE | 2022-02-02 14:07 | XACV_ITS ---
Exam Room: 2 Ht: 188 cm Wt: 84 kg BSA: 2.09 m2 Gender: Male : 1965 Exam Priority: Routine Procedure(s): Procedure Description: Diagnostic procedure Procedure Description: Left Heart Catheterization Procedure Description: Left ventriculography Procedure Description: Coronary Angiography Miguel BHARDWAJ; Diagnostic Cath Status: Urgent Diagnostic Findings * The left main is a medium caliber vessel with no significant stenotic lesions. * The left artery descending artery is a medium caliber vessel which wrap around the LV apex minimally. Proximally it gives of a large septal shop steward which was found to have minimal intimal irregularities. The diagonal branch appears to be of equal caliber with around 20 to 30% eccentric narrowing proximally. The left anterior sending artery was found mild diffuse intimal irregularities.. * The circumflex artery is a medium caliber nondominant vessel with no significant stenotic lesions. * No right coronary artery is a large dominant mostly with no significant stenotic lesions. Conclusions 1. 56-year-old white male with a history of smoking abuse, strong family history for premature atherosclerotic heart diseas, dyslipidemia, presented with a prolonged episode of chest pain. EKG showed some nonspecific changes. Echocardiogram revealed mild hypokinesia of the basal inferior wall segment. Patient continued to have chest pain during the hospital stay. In view of his ongoing symptoms and the risk factors, in order to further evaluate his coronary status a cardiac catheterization was recommended. Patient underwent left heart catheterization with left and right coronary angiogram and LV angiogram.. The findings are as follows. 2. Mild coronary artery disease, mainly involving the left anterior descending artery. Normal LV ejection fraction. Evidence of left-ventricular diastolic dysfunction with an LVEDP of 21 mmHg. Normal LV ejection fraction of 60%. Diagnostic RX Recommendation: medical therapy and/or counseling LV EDP: 21 mmHg Ventriculography Ejection Fraction: 60.0 % Left Ventriculography Findings: * The LV gram was performed in the GALVIN projection. LV cavity appeared to be within normal size. LV ejection fraction was around 60%. LVEDP was 21 mmHg. There was no filling defects. No significant mitral valve prolapse or mitral vegetation. Pressures Phase:Rest AO : 99 / 58 ( 75 ) @ 5:26:00 PM 82 / 57 ( 69 ) @ 5:28:00 PM 82 / 56 ( 68 ) @ 5:29:00 PM 106 / 58 ( 80 ) @ 5:34:00 PM 106 / 58 ( 80 ) @ 5:34:00 PM LV : 122 / -9 / 21 @ 5:33:00 PM 119 / -5 / 21 @ 5:33:00 PM 120 / -6 / 22 @ 5:34:00 PM Valves Phase:DefaultPhase AV : 15.0 @ 5:43:42 PM AV Mean Gradient: 22.0 @ 5:43:42 PM Clinical Evaluation EBL: 5mL-10mL Procedural Details Pre-Procedure Time Out. Identified patient by full name and date of as verbalized by the patient/guarantor. Does the consent match the physician's order: Yes. Accurate & Complete Informed Consent: Yes. Inpatient/Outpatient History & Physical on Chart: Yes. If H&P is completed, is and addenduem needed: Yes; If yes, is the addendum complete: N/A. Visualize and Verify Site with Patient/Guarantor: N/A. Relevant Radiology Images available: Yes. Pre-op teaching completed and patient verbalized understanding. The risks, benefits, and alternatives of sedation and/or procedure were discussed by physician. The patient agrees to continue. Procedure started. [facility] Clinical Fraility Score: 3: Managing Well. Transportation Analyst Indications: Worsening Angina, Unstable angina. Chest Pain Symptom Assessment: Typical Angina Symptoms. Cardiovascular Instability: No. Correct patient, site and procedure confirmed by cath team. PERRLA. Strong, equal hand legislative assistant bilaterally. Lungs clear x 5 lobes. IV Site on Arrival: 18 gauge in the right anticubital. IV Fluids: 0.9% NaCl at KVO. 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 Pre Procedural Pulses: bilateral radial was 3+. Oxygen started at 2liters/min via nasal canula. right groin was prepped with chloroprep then draped in the usual sterile fashion. right radial was prepped with chloroprep then draped in the usual sterile fashion. Physician notified. Baseline sample Acquired. HR: 69 BPM. Patients spouse, Xochitl, is in the cath lab tech waiting room. Dr Rivera will update at the completion of the procedure. Equipment: 6F - Radial. Cardiac Cath Pack. ACIST Manifold Kit Model BT 2000. Heparinized Saline (2 units/mL), 1000 mL bag. Physician arrived. Baseline sample Acquired. HR: 67 BPM. Physician scrubbed in. Immediate Pre-Procedure Time Out. Correct Patient: Yes; Correct Procedure: Yes; Correct Site: Yes; Correct Patient Position: Yes; Correct Supplies: Yes; Dried Flammable Prep: Yes; Blood Products Available: N/A;. Lidocaine 1% infiltrated to the right radial. Arterial access obtained. A 5 english Timothy catheter in over the exchange J wire. Multiple views taken of left coronary artery. Catheter redirected to the RCA. Multiple views taken of right coronary artery. Catheter removed over the exchange J wire. A 5 english Angled Pig catheter in over the exchange J wire. EDP Sample taken: LV 122/-10,21; HR: 67 BPM; SpO2: 98%. LV gram performed in GALVIN @ 10 mL/second for a total of 30 mL. EDP Sample taken: LV 119/-6,21; HR: 68 BPM; SpO2: 99%. Pullback taken: LV 120/-7,22; AO 106/58(80); Mean: 22mmHg, Peak to Peak: 15mmHg, SEP: 7sec/min; HR: 68 BPM; SpO2: 99%. Catheter removed over the exchange J wire. Dr. Rivera scrubbed out. A TR Band was successful obtaining hemostatsis at the Right Radial artery insertion site. TR band placed. Hemostasis obtained. Post Procedure: Pulses reassessed and unchanged. PERRLA. Strong, equal hand legislative assistant bilaterally. No VTE prophylaxis required. Medication's Wasted: Nitro = 49.8 mg. Medication's Wasted: Lidocaine 1% = 2 mL. Medication's Wasted: Heparin = 1000 units. Medication's Wasted: Other = Fentanyl 25 mcg. Total IV fluids: 270 mL. Post-op diagnosis: Mild CAD. Complications: none. Estimated blood loss: 5mL-10mL. Responsiveness - Normal response to verbal stimuli; alert and oriented, PERRLA. Airway - Unaffected, no intervention required; spontaneous ventilation. Circulation: W/N/L, pulses unchanged. Nausea/Vomiting: No. Procedure completed. Patient transferred by bed to 1st floor. Vital chart was stopped. Access Site Site: Right Radial artery Sheath Size: 6 Fr Hemostasis Method: TR Band Hemostasis Success: Successful Procedure Medications Start: 5:06 PM Stop: 5:06 PM Medication: Versed Amount: 1 mg Route: I.V. Start: 5:06 PM Stop: 5:06 PM Medication: Fentanyl Amount: 50 mcg Route: I.V. Start: 5:20 PM Stop: 5:20 PM Medication: Versed Amount: 1 mg Route: I.V. Start: 5:23 PM Stop: 5:23 PM Medication: Fentanyl Amount: 25 mcg Route: I.V. Start: 5:24 PM Stop: 5:24 PM Medication: Nitrogylcerin Amount: 200 mcg Route: I.A. Start: 5:24 PM Stop: 5:24 PM Medication: Verapamil Amount: 5 mg Route: I.A. Start: 5:24 PM Stop: 5:24 PM Medication: 0.9% Saline Amount: 250 ml Route: I.V. bolus Start: 5:25 PM Stop: 5:25 PM Medication: Heparin Amount: 5000 units Route: I.V. I, the attending physician, have reviewed and verified all procedure medications. Yes, all medications given per verbal order History/Risk Factors Hypertension: No Dyslipidemia: No Peripheral Arterial Disease (PAD): No Myocardial Infarction (TN): No Obesity: No Renal Disease: No Tobacco Use: Current/Recent(w/in 1 year) Prior Interventions PCI: No CABG: No Valve Surgery: No Report Signatures Finalized by Dr Harry Rivera MD [facility] on 02/02/2022 06:30 PM
--- NOTE | 2022-02-02 14:42 | W.PM.OPSUD ---
Surgery/Procedure H&P Update DATE OF PROCEDURE: February 02, 2022 DATE H&P PERFORMED: 02/01/22 H&P UPDATE INFORMATION: I have reviewed H&P completed within last 30 days, I have examined patient prior to procedure and No changes to prior documentation PREOP DIAGNOSIS: suspected CAD PRIMARY INDICATION FOR PROCEDURE: Unstable angina symptoms PLANNED PROCEDURE: Left heart catheterization with coronary angiogram PATIENT REASSESSED PRIOR TO SEDATION, WITH NO CHANGE NOTED: Yes PHYSICAL EXAM: alert, oriented x 3, clear to auscultation bilaterally and regular rate & rhythm AIRWAY EVAL/ANESTHESIA PLAN: normal airway, see other exam findings, ASA II, Monitored Anesthesia, Local Anesthesia, Risks, benefits & alternatives of sedation and/or procedure discussed and Patient agrees to continue as planned
--- NOTE | 2022-02-02 16:55 | PC.NURSE ---
pt to cardiac brick and blocker aid labor via w/c
--- NOTE | 2022-02-02 18:15 | PC.NURSE ---
received from cardiac cardiac cath tech at 1750 via bed.report received.pt is alert and oriented x 4.sb (50's) on monitor.denies pain at present.right wrist with tr band on and inflated.no hematoma noted.right hand is warm to touch and with brisk capillary refill.pt instructed in activity restrictions s/p radial artery procedure...and instructed to notify staff for any bleeding,pain,numbness...or for any concerns at all.pt verb understanding of instructions
[2022-02-02] MEDS: atorvastatin 40 mg Tablet PO (20:49)
[2022-02-03] VITALS (22 sets, daily range): BP systolic 95–109; BP diastolic 48–67; PULSE 51–70; RESP 1–22; TEMP 37.1; O2SAT 97–99
[2022-02-03 06:20] LABS: Anion Gap 13.3 (5-19); Blood Urea Nitrogen 13 mg/dL (6-20); Calcium 8.5 mg/dL (8.5-10.5); Carbon Dioxide 23 mmol/L (22-29); Chloride 103 mmol/L (98-107); Creatinine Clr Calc Pharmacy 94.3979; Glomerular Filtration Rate 76.7 mL/min (90-130); Glucose 89 mg/dL (65-115); Osmolality Calculated 280 mOsm/kg (285-295); Potassium 4.3 mmol/L (3.5-5.1); Sodium 135 mmol/L (136-145)
[2022-02-03] MEDS: acetaminophen 500 mg Tablet PO (06:54)
--- NOTE | 2022-02-03 07:27 | PM.DCS ---
Discharge Providers Date of Admission: 02/01/22 15:15 Date of Discharge: February 03, 2022 Attending Provider at Admission: Harry Rivera MD Attending Provider at Discharge: Ana Hall MD Primary Care Provider: Corina Bustillo MD Diagnoses at Discharge Discharge Diagnosis (1) Chest pain: Status: Acute (2) FH: premature coronary heart disease: Status: Acute (3) Smoking addiction: Status: Acute (4) Dyslipidemia: Status: Acute Reason for Visit Reason for Visit: cp Hospital Course Hospital Course 56-year-old male who presented with chest pain, CT was requested which was unremarkable, patient went for coronary angiogram which did not show significant coronary disease his pain is pleuritic in nature we have commended anti-inflammatory analgesics for the patient for musculoskeletal pain. He remained normotensive. Heart rate has been in 60s. He does not meet criteria to be on aspirin or statin. I have requested him to follow-up with his PCP. Echo unremarkable with preserved action fraction. Physical Exam Narrative: Awake and alert S1, S2 Chest pain-free at the bedside Appears euvolemic No audible stridor or wheezing Abdomen soft Discharge Data Studies Completed and Pending Completed Studies During Hospitalization Category Date Time Status CTA chest [CT angio chest [id number]] Routine Cat Scan 02/01/22 20:01 Completed TELEPHONE SERVICE REPRESENTATIVE request for service Routine Exams 02/02/22 14:07 Completed XR chest 1V portable [id number] Stat Exams 02/01/22 11:08 Completed CV. echo complete* [id number] Stat Ultrasound 02/01/22 14:48 Completed Pending at discharge Category Date Time Status Sestamibi Stress Test Request Routine Exams 02/01/22 16:11 Stop Req Radiology Impressions Chest X-Ray 02/01/22 11:08 Impression: Negative chest. Chest CTA 02/01/22 20:01 IMPRESSION: 1. No pulmonary embolism or pneumonia. 2. In the right lower lobe there is an 8 mm noncalcified nodule. 3. Bronchial wall thickening suggests bronchitis. For patients at low risk (minimal or absent history of smoking and of other known risk factors), recommend CT Chest at 6-12 months, then consider CT Chest at 18-24 months. For patients at high risk (history of smoking or of other known risk factors), recommend CT Chest at 6-12 months, then CT Chest at 18-24 months. (Reference: Fior) References: Fior Nickerson, et al. Guidelines for Management of Incidental Pulmonary Nodules Detected on CT Images: From the Fleischner Society 2017. Radiology. 2017;284(1):228-243. Laboratory Results WBC 5.1 10^3/uL (4.0-10.0) 02/02/22 05:07 RBC 4.36 10^6/uL (4.1-5.3) 02/02/22 05:07 Hgb 13.1 g/dL (11.7-16.6) 02/02/22 05:07 Hct 40.0 % (42.0-52.0) L 02/02/22 05:07 MCV 91.7 fl (80-94) 02/02/22 05:07 MCH 30.0 pg (28.0-34.0) 02/02/22 05:07 MCHC 32.8 g/dL (30.0-36.0) 02/02/22 05:07 RDW 12.7 % (12.1-15.1) 02/02/22 05:07 Plt Count 190 10^3/cmm (130-400) 02/02/22 05:07 MPV 9.3 fL (7.4-10.4) 02/02/22 05:07 Neut % (Auto) 47.3 % 02/02/22 05:07 Lymph % (Auto) 36.8 % 02/02/22 05:07 Ocean % (Auto) 9.6 % 02/02/22 05:07 Eos % (Auto) 5.5 % 02/02/22 05:07 Baso % (Auto) 0.6 % 02/02/22 05:07 Neut # (Auto) 2.40 10^3/uL (1.8-7.7) 02/02/22 05:07 Lymph # (Auto) 1.9 10^3/uL (0.8-4.8) 02/02/22 05:07 Ocean # (Auto) 0.5 10^3/uL (0.2-0.9) 02/02/22 05:07 Eos # (Auto) 0.3 10^3/uL (0.0-0.8) 02/02/22 05:07 Baso # (Auto) 0.0 10^3/uL (0.0-0.1) 02/02/22 05:07 Nucleated RBC % (auto) 0 % 02/02/22 05:07 Nucleated RBCs # 0.0 /100WBC 02/02/22 05:07 D-Dimer 1.33 ug/mIFEU (0-0.59) H 02/01/22 18:31 Sodium 135 mmol/L (136-145) L 02/03/22 05:37 Potassium 4.3 mmol/L (3.5-5.1) 02/03/22 05:37 Chloride 103 mmol/L (98-107) 02/03/22 05:37 Carbon Dioxide 23 mmol/L (22-29) 02/03/22 05:37 Anion Gap 13.3 (5-19) 02/03/22 05:37 BUN 13 mg/dL (6-20) 02/03/22 05:37 Creatinine 1.0 mg/dL (0.7-1.2) 02/03/22 05:37 GFR Calculation 76.7 mL/min (90-130) L 02/03/22 05:37 Glucose 89 mg/dL (65-115) 02/03/22 05:37 Estimat Average Glucose 88 02/01/22 16:26 Hemoglobin A1c 4.7 % (4.0-6.0) 02/01/22 16:26 Calculated Osmolality 280 mOsm/kg (285-295) L 02/03/22 05:37 Calcium 8.5 mg/dL (8.5-10.5) 02/03/22 05:37 Magnesium 2.0 mg/dL (1.7-2.3) 02/02/22 05:07 Total Bilirubin 0.4 mg/dL (0.15-1.2) 02/01/22 11:18 AST 15 U/L (0-40) 02/01/22 11:18 ALT 13 U/L (0-41) 02/01/22 11:18 Alkaline Phosphatase 69 U/L (40-130) 02/01/22 11:18 Troponin T Baseline 8 ng/L (0-15) 02/01/22 11:18 Troponin T 120 Minute 7.20 ng/L (0-15) 02/01/22 13:15 Delta Troponin T -0.8 ABS# (0-10) L 02/01/22 13:15 Troponin T Hi Sens 6Hr 7.08 ng/L (0-15) 02/01/22 17:06 Troponin T Hi Sens 6Hr Delta -0.92 ng/L (0-12) L 02/01/22 17:06 NT-Pro-B Natriuret Pep 15 pg/mL (0-125) 02/01/22 11:18 Total Protein 6.5 g/dL (6.6-8.7) L 02/01/22 11:18 Albumin 4.3 g/dL (3.5-5.2) 02/01/22 11:18 Globulin 2.2 g/dL (1.3-4.6) 02/01/22 11:18 Triglycerides 51 mg/dL (0-150) 02/01/22 18:31 Cholesterol 139 mg/dL (0-200) 02/01/22 18:31 LDL Cholesterol, Calc 91 mg/dL (50-129) 02/01/22 18:31 HDL Cholesterol 38 mg/dL (60-100) L 02/01/22 18:31 LDL/HDL Ratio 2.39 RATIO (0.00-3.22) 02/01/22 18:31 Cholesterol/HDL Ratio 3.66 mg/dL (1.0-5.00) 02/01/22 18:31 Lipase 43 U/L (13-60) 02/01/22 11:18 Vitals Last Vital Signs Temp 98.8 F 02/03/22 04:30 Pulse 70 02/03/22 05:46 Resp 18 02/03/22 04:30 BP 109/67 02/03/22 04:30 Pulse Ox 98 02/03/22 04:30 O2 Del Method 02/03/22 03:00 Discharge Plan Discharge Patient Disposition: Home Condition: Stable Prescriptions: Continued Fish Mox 250 Mg 1 tab PO BID Discharge Orders: Discharge Order (Routine); Ordered 02/03/22 Ordered By: Ana Hall Referrals: Corina Bustillo MD [Primary Care Provider] - 2 weeks (Please follow-up with Dr. Bustillo on Saturday, at 4:00P.M. If you have any questions or need to reschedule. Please call ) Patient Instructions: How to Stop Smoking (DC), Chest Pain Stoplight, Opioid Safety Discharge Attestations Time Spent in Discharge Care*: less than 30 min Quality Metrics Clinical Quality Measures [ No reported AMI, CVA or VTE this stay] Coding Level of Care Code Acute Chg FW DC note Diagnoses Chest pain R07.9 FH: premature coronary heart disease Z82.49 Smoking addiction F17.200 Dyslipidemia E78.5
[2022-02-03] MEDS: aspirin 81 mg EC Tablet PO (09:19)
--- NOTE | 2022-02-03 09:37 | P.PN_ITS ---
Subjective Subjective: Patient had a cardiac catheterization yesterday. He was found to have mild coronary artery disease. His chest pain was thought to be noncardiac. Most likely from costochondritis. He still has the chest wall pain. Medications: Medication Review Details: Current Medications Acetaminophen (Acetaminophen 500 Mg Tablet) 500 mg PO Q4H PRN PRN Reason: fever Last Admin: 02/03/22 06:54 Dose: 500 mg Al Hydrox/Mg Hydrox/Simethicone (Mbap-Mkn-Cgfxgqdbq-Lala 30 Ml Udc) 30 ml PO Q15M PRN PRN Reason: INDIGESTION Albuterol/Ipratropium (Ipratropium-Albuterol 3 Ml Neb) 3 ml INHALATION Q6H PRN PRN Reason: SHORTNESS OF BREATH Aspirin (Aspirin 81 Mg Ec Tablet) 81 mg PO DAILY [facility] Last Admin: 02/03/22 09:19 Dose: 81 mg Atorvastatin Calcium (Atorvastatin 40 Mg Tablet) 40 mg PO BEDTIME EARL Last Admin: 02/02/22 20:49 Dose: 40 mg Atropine Sulfate (Atropine 1 Mg/Ml Sdv 1 Ml) 0.5 mg IVP PRN PRN PRN Reason: Symptomatic bradycardia Enoxaparin Sodium (Enoxaparin 40 Mg/0.4 Ml Syringe) 40 mg SUBCUT Q24H [facility] Last Admin: 02/02/22 18:39 Dose: Not Given Fentanyl (Fentanyl 50 Mcg/Ml Inj 2ml) 50 mcg IVP PRN PRN PRN Reason: Prior to sheath removal Sodium Chloride (Sodium Chloride 0.9%) 1,000 mls @ 75 mls/hr IV .[id number] [facility] Last Infusion: 02/03/22 07:00 Dose: Infused Magnesium Hydroxide (Magnesium Hydroxide 30 Ml Udc) 30 ml PO DAILY PRN PRN Reason: CONSTIPATION Morphine Sulfate (Morphine Ir 15 Mg Tablet) 15 mg PO Q6H PRN PRN Reason: pAIN Last Admin: 02/01/22 22:34 Dose: 15 mg Naloxone HCl (Naloxone 0.4 Mg/Ml Sdv) 0.1 mg IVP Q2M PRN PRN Reason: RESPIRATORY RATE < 8/MIN Nitroglycerin (Nitroglycerin 0.4 Mg Sublingual Tablet) 0.4 mg SUBLINGUAL Q5M PRN PRN Reason: CHEST PAIN Ondansetron HCl (Ondansetron 2 Mg/Ml Sdv 2 Ml) 4 mg IVP Q6H PRN PRN Reason: NAUSEA AND VOMITING Last Admin: 02/01/22 19:37 Dose: 4 mg Temazepam (Temazepam 15 Mg Capsule) 15 mg PO BEDTIME PRN PRN Reason: INSOMNIA Vitals/I&O/Wt Last Vital Signs Temp 98.8 F 02/03/22 04:30 Pulse 52 L 02/03/22 08:00 Resp 16 02/03/22 08:00 BP 104/65 02/03/22 08:00 Pulse Ox 97 02/03/22 08:00 O2 Del Method 02/03/22 08:00 02/02/22 02/03/22 02/03/22 22:59 06:59 14:59 Intake Total 888.75 / 1888.75 500 / 2388.75 1000 / 1000 Output Total 1750 / 2150 Balance -861.25 / -261.25 500 / 238.75 1000 / 1000 Weight last 48 hrs Weight 185 lb Physical Exam Narrative: GENERAL: The patient is alert and oriented times three. Not in any acute distress. HEENT: No significant pallor, icterus or lymphadenopathy.Oral cavity: There are no mucous membrane lesions. NECK: Trachea appears to be central. No masses noted. No JVD or thyromegaly appreciated. RESPIRATORY: Chest is symmetrical. No intercostals muscle retraction or any accessory muscle activation. Chest wall tenderness present in the mid costocho ndral junctions breath sounds are heard bilaterally. No rales or rhonchi heard. No evidence of any consolidation. BREASTS: Deferred. HEART: The heart sounds are normal. No S3 or S4. No significant murmurs. No pericardial rub ABDOMEN: No vessel pulsations or distention. No tenderness. No organomegaly appreciated. Bowel sounds are normally heard. : Deferred. RECTAL: Deferred. LYMPHATIC: No lymphadenopathy noted in the neck. EXTREMITIES: No edema or cyanosis. No clubbing. MUSCULOSKELETAL: No acute joint deformities or swelling SKIN: There are no significant rashes or ecchymosis NEUROPSYCHIATRIC: The patient is alert and oriented x3. Appears to be in a good mood. No tremors or rigidity noted. Data : 02/02/22 05:07 02/03/22 05:37 A&P Assessment and plan (1) Chest pain: The cardiac colorization later was once again discussed with the patient. Most likely the chest pain is related to costochondritis. He may be tried on anti- inflammatory medications-Naprosyn/ibuprofen. Discussed with the hospitalist physician. (2) FH: premature coronary heart disease: Patient has mild CAD. At this point, may continue on the risk modifying measures. (3) Smoking addiction: Patient strongly advised to quit smoking. (4) Dyslipidemia: Patient may be continued on the low-cholesterol low-fat diet and Pravachol 10 mg p.o. nightly Plan If the patient continues remain stable, may be discharged home today Attestations Medical Necessity Statement*: Possible discharge home today Coding Level of Care Code Acute Plate And Frame Filter Operator for Chg Fwd History Expanded Problem Focused Exam Expanded Problem Focused Medical Decision Making Low Complexity Diagnoses Chest pain R07.9 FH: premature coronary heart disease Z82.49 Smoking addiction F17.200 Dyslipidemia E78.5
--- NOTE | 2022-02-03 11:27 | P.MISC_ITS ---
Miscellaneous Note Note: To whom it may concern, Mr. Maldonado was admitted to the hospital for pleuritic chest pain. He went for coronary angiogram. 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 We would recommend him to get some rest for the next 5 days at least and use opioids in analgesics to control his symptoms before he resumes his work. He was admitted on 02/01. He is being discharged on 02/03 after cardiac work-up. Should you have any questions please do not hesitate to contact [facility] hospitalist department. Thank so much
--- NOTE | 2022-02-03 13:55 | PC.NURSE ---
discharge instructions given and explained.pt and spouse verb understanding .discharged ambulatory to exit.spouse to drive pt home
== END 2022-02-03 13:00 | disposition home or self-care (01) ==
LOC: ER 14:02 → MEDSURG 16:18 → CSU 02-02 17:03
PROVIDERS: Admitting Provider Internal Medicine Cardiovascular Disease; Emergency Provider Emergency Medicine; PCP Family Medicine; Visit Provider Internal Medicine
DX: I25.110 Atherosclerotic heart disease of native coronary artery with unstable angina pectoris (principal); Z82.49 Family history of ischemic heart disease and other diseases of the circulatory system; F17.210 Nicotine dependence, cigarettes, uncomplicated; E78.5 Hyperlipidemia, unspecified; R07.89 Other chest pain
CPT/HCPCS: 36415; 71045; 71275; 80048; 80053; 80061; 83036; 83690; 83735; 83880; 84484; 85025; 85378; 93005; 93306; 93458; 96360; 96372; 96374; 96376; 99152; 99153; 99285; C1769; C1887; C1894; G0378; J1644; J1650; J2250; J2270; J2405; J3010; J3490; J7030; Q9967

== ENCOUNTER 2024-08-23 20:53 | Emergency (ER) | payer SELFPAY ==
[2024-08-23 21:00] VITALS: BP 129/77; PULSE 72; RESP 20; TEMP 36.3; O2SAT 100
--- NOTE | 2024-08-23 21:15 | XRR_ITS ---
PROCEDURE INFORMATION: Exam: XR Chest Exam date and time: 08/23/2024 9:20 PM Age: 58 years old Clinical indication: Chest pressure and left-sided; C/O left sided chest pain that radiates into the left arm. Pain started about 1500 while just sitting on the couch. Describes the pain as stabbing. Rates the pain 5/10. HX pleurisy several yrs ago. ; Additional info: Cp TECHNIQUE: Imaging protocol: Radiologic exam of the chest. Views: 1 view. COMPARISON: CT angio chest [id number] 02/01/2022 8:34 PM FINDINGS: Lungs: Unremarkable. No consolidation. Pleural spaces: Unremarkable. No pleural effusion. No pneumothorax. Heart/Mediastinum: Unremarkable. No cardiomegaly. Bones/joints: Unremarkable. XR/XR chest 1V portable [id number] IMPRESSION: No acute findings.
--- NOTE | 2024-08-23 21:15 | ECG_ITS ---
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 Measurements Intervals [place] Rate: 72 P: 67 W[place]: 150 QRS: 83 QRSD: 92 T: 76 QT: 367 QTc: 402 Interpretive Statements SINUS RHYTHM Compared to ECG 02/01/2022 17:53:59 Sinus bradycardia no longer present Intraventricular conduction delay no longer present Electronically Signed On 08-25-2024 11:38:25 CDT by Benja Worley M.D. [email or web address] [id number]
[2024-08-23] MEDS: morphine 4 mg/mL SDV 1 mL IVP ×2 (21:46→23:22)
[2024-08-23] MEDS: ondansetron 2 mg/ML SDV 2 mL 4 MG IVP (21:46)
--- NOTE | 2024-08-23 21:59 | ED_ITS ---
HPI - Chest Pain 2 General: Chief Complaint: Chest Pain Stated Complaint: Chest Pains Time Seen by Provider: 08/23/24 21:14 History of Present Illness: 58-year-old male patient. No prior hist ory of coronary disease. He does have a history of pleurisy . He presents with sharp left-sided chest discomfort, worse with coughing and deep breathing. It radiates into his left arm. He is mildly short of breath. No fever. He has had a cough. No sputum production. Related Data Home Medications ?Medication ?Instructions ?Recorded ?Confirmed Fish Mox 250 Mg 1 tab PO BID 02/01/22 Previous Rx's ?Medication ?Instructions ?Recorded ketorolac 10 mg tablet 10 mg PO TID PRN pain #10 ta bs 08/24/24 oxycodone-acetaminophen 5 mg-325 1 tab PO Q8H PRN pain #7 tabs 08/24/24 mg tablet Allergies Allergy/AdvReac Type Severity Reaction Status Date / Time No Known Allergies Allergy Verified 08/23/24 21:04 PFSH ED 2 PFSH: Medical History Dyslipidemia FH: premature coronary heart disease Smoking addiction Unstable angina Chest pain No significant past medical history Surgical History H/O knee surgery Family History Other CAD (coronary artery disease) Social History Smoking and tobacco/nicotine status: current every day tobacco/nicotine user Physical Exam 2 Const: GENERAL APPEARANCE: cooperative and anxious; not ill appearing and not frail appearing HENMT: COMMON NORMALS: normocephalic, atraumatic and Normal external nose present HEAD & SCALP: normocephalic and atraumatic FACE & SINUS: normal facial exam and face symmetric NOSE: Normal external nose present Eye: COMMON NORMALS: Equal, round and reactive pupils present and EOMs intact bilaterally PUPIL: Yes Equal, round and reactive pupils present Neck/C-Spine: GENERAL: Yes trachea midline Chest: CHEST: Yes Symmetrical chest wall rise Resp: COMMON NORMALS: normal respiratory effort, No retractions, No use of accessory muscles and clear to auscultation bilaterally AUSCULTATION: clear to auscultation bilaterally Cardio: COMMON NORMALS: regular rate and regular rhythm RATE: regular rate RHYTHM: regular rhythm GI: COMMON NORMALS: Normal to inspection, nondistended, normoactive bowel sounds present Extremity: COMMON NORMALS: no pedal edema Neuro: MIRELLA COMA SCALE: document GCS findings [place] coma scale eye opening: Spontaneous Mirella coma scale verbal response: Orientated Mirella coma scale motor response: Obey commands Mirella coma scale total score: 15 S ENSORY EXAM: Yes extremities (intact) Psych: COMMON NORMALS: speech normal SPEECH: Yes normal speech Skin: COMMON NORMALS: no rashes or lesions noted GENERAL SKIN EXAM: no rashes or lesions noted Course 2 Vital Signs: Vital signs: Vital Signs Temperature 97.4 F L 08/23/24 21:00 Pulse Rate 56 L 08/24/24 00:51 Respiratory Rate 16 08/24/24 00:51 Blood Pressure 120/64 08/24/24 00:51 Pulse Oximetry 94 08/24/24 00:51 Oxygen Delivery Me thod Room Air 08/23/24 22:40 MDM - Chest Pain Medical Decision Making He is somewhat tachypneic, and anxious. Vitals are otherwise unremarkable. Chest x-ray is nonacute. Troponins are negative x 2. EKG shows sinus bradycardia with no acute ST wave changes. CBC BMP are not remarkable. CK is normal. BNP is nondetectable. ABG shows mild respiratory alkalosis consistent with hyperventilation. The patient began to have tremor in his upper and lower extremities during his stay in the emergency department. This is likely due to hyperventilation and carpopedal spasm. This was explained to him and his . Pain is pleuritic in nature. There is no evidence or clinical sign of pulmonary embolism. He did require a significant amount of pain medication to control his pain, but his pain is nearly resolved at this point. He will be discharged. Pain control. Return for worsening symptoms. Lab Data 08/23/24 21:32 08/23/24 21:32 Radiology Impressions Chest X-Ray 08/23/24 21:15 IMPRESSION: No acute findings. Laboratory Results WBC 7.45 10^3/uL (3.29-11.43) 08/23/24 21:32 RBC 4.88 10^6/uL (3.85-5.65) 08/23/24 21:32 Hgb 14.70 g/dL (11.27-16.99) 08/23/24 21:32 Hct 43.2 % (37-53) 08/23/24 21:32 MCV 88.5 fl (82-101) 08/23/24 21:32 MCH 30.1 pg (27-33) 08/23/24 21: MCHC 34.0 g/dL (30-55) 08/23/24 21:32 RDW 12.4 % (12.1-15.1) 08/23/24: Plt Count 249 10^3/cmm (157-399) 08/23/24: MPV 8.8 fL (7.4-10.4) 08/23/24: Neut % (Auto) 39.7 % 08/23/24 21: Lymph % (Auto) 41.2 % 08/23/24: [place] % (Auto) 11.1 % 08/23/24: Eos % (Auto) 7.0 % 08/23/24: Baso % (Auto) 0.5 % 08/23/24: Neut # (Auto) 2.95 10^3/uL (1.8-7.7) 08/23/24: Lymph # (Auto) 3.1 10^3/uL (0.8-4.8) 08/23/24:32 [place] # (Auto) 0.8 10^3/uL (0.2-0.9) 08/23/24: Eos # (Auto) 0.5 10^3/uL (0.0-0.8) 08/23/24: Baso # (Auto) 0.0 10^3/uL (0.0-0.1) 08/23/24: Nucleated RBC % (auto) 0 % 08/23/24: Nucleated RBCs # 0.0 /100WBC 08/23/24 21:32 Specimen Type Arterial 08/23/24 22:02 Sample Site Radial, left 08/23/24 22:02 ABG pH 7.46 (7.35-7.45) H 08/23/24 22:02 ABG pCO2 32.4 mmHg (35-45) L 08/23/24 22:02 ABG pO2 103.0 mmHg (80.0-100.0) H 08/23/24 22:02 ABG PO2/FiO2 Ratio 490 08/23/24 22:02 ABG HCO3 22.8 mmol/L (22-26) 08/23/24 22:02 ABG Base Excess -0.4 mmol/L (-2.0-2.0) 08/23/24 22:02 Robert Test Pos 08/23/24 22:02 Hematocrit 44.6 % (42-52) 08/23/24 22:02 O2 Delivery Device Room air 08/23/24 22:02 FiO2 21.0 % 08/23/24 22:02 Market Asset Protection Manager ID Anita 08/23/24 22:02 Sodium 139 mmol/L (136-145) 08/23/24 21:32 Potassium 4.4 mmol/L (3.5-5.1) 08/23/24 21:32 Chloride 105 mmol/L (98-107) 08/23/24 21:32 Carbon Dioxide 22 mmol/L (22-29) 08/23/24 21:32 Anion Gap 16.4 (5-19) 08/23/24 21:32 BUN 16 mg/dL (8-23) 08/23/24 21:32 Creatinine 0.9 mg/dL (0.7-1.2) 08/23/24 21:32 GFR Calculation 86.1 mL/min (90-130) L 08/23/24 21:32 Glucose 101 mg/dL (65-115) 08/23/24 21:32 Calculated Osmolality 289 mOsm/kg (285-295) 08/23/24 21:32 Calcium 9.6 mg/dL (8.5-10.5) 08/23/24 21:32 Total Bilirubin 0.2 mg/dL (0.15-1.2) 08/23/24 21:32 AST 13 U/L (0-40) 08/23/24 21:32 ALT 13 U/L (0-41) 08/23/24 21:32 Alkaline Phosphatase 79 U/L (40-130) 08/23/24 21:32 Creatine Kinase 66 U/L (39-308) 08/23/24 21:32 Troponin T Baseline 7 ng/L (0-15) 08/23/24 21:32 Troponin T 120 Minute 6.39 ng/L (0-15) 08/23/24 23:13 Delta Troponin T -0.61 ABS# (0-10) L 08/23/24 23:13 NT-Pro-B Natriuret Pep < 36 pg/mL (0-125) 08/23/24 21:32 Total Protein 6.4 g/dL (6.6-8.7) L 08/23/24 21:32 Albumin 4.2 g/dL (3.5-5.2) 08/23/24 21:32 Globulin 2.2 g/dL (1.3-4.6) 08/23/24 21:32 All radiology interpretation(s) finalized by discharge Discharge Plan Discharge Patient Disposition: Home Clinical Impression: Atypical chest pain Condition: Stable Prescriptions: New ketorolac 10 mg tablet 10 mg PO TID PRN (Reason: pain) Qty: 10 0RF Continued oxycodone-acetaminophen 5-325 mg tablet 1 tab PO Q8H PRN (Reason: pain) Qty: 7 0RF Discontinued ibuprofen 400 mg tablet 400 mg PO Q8H PRN (Reason: pain) Qty: 60 0RF No Action Fish Mox 250 Mg 1 tab PO BID Discharge Orders: Discharge ED (Routine); Ordered 08/24/24 Ordered By: Kamaljit Salas Referrals: Corina Bustillo MD [Primary Care Provider, Family Practice] - 1-3 days Patient Instructions: Chest Pain (ED), Opioid Safety, Pain Management Activity Restrictions/Additional Instructions: Alternate medications for pain. Return for fever, cough or sputum production, other concerning symptoms. Call your doctor tomorrow for follow-up appointment. Stand Alone Forms: Work/School Release Print Language: Chilean Coding Level of Care Code ED Pulp Roller for Rolando Aguayo
[2024-08-23 22:01] LABS: Basophils % 0.5 %; Eosinophils # 0.5 10^3/uL (0.0-0.8); Hematocrit 43.2 % (37-53); Lymphocytes # 3.1 10^3/uL (0.8-4.8); Lymphocytes % 41.2 %; Mean Corpuscular Hemoglobin 30.1 pg (27-33); Mean Corpuscular Volume 88.5 fl (82-101); Mean Platelet Volume 8.8 fL (7.4-10.4); Monocytes # 0.8 10^3/uL (0.2-0.9); Monocytes % 11.1 %; Neutrophils # 2.95 10^3/uL (1.8-7.7); Neutrophils % 39.7 %; Nucleated Red Blood Cells % 0 %; Platelet Count 249 10^3/cmm (157-399); Red Blood Count 4.88 10^6/uL (3.85-5.65); Red Cell Distribution Width 12.4 % (12.1-15.1); White Blood Count 7.45 10^3/uL (3.29-11.43)
[2024-08-23 22:16] LABS: ABG PCO2 32.4 mmHg (35-45); ABG PH Result 7.46 (7.35-7.45); Arterial Blood Gas Hematocrit 44.6 % (42-52); Base Excess ABG -0.4 mmol/L (-2.0-2.0); Blood Gas Allen Test Pos; Blood Gas Operator Identificat MONRO; Blood Gas Sample Site Radial, left; Blood Gas Sample Type Arterial; HCO3 ABG 22.8 mmol/L (22-26); Oxygen Device ROOM AIR; PO2 FiO2 Ratio Arterial Blood 490
[2024-08-23 22:22] LABS: Troponin(5th) Baseline 7 ng/L (0-15)
[2024-08-23 22:23] LABS: Alanine Aminotransferase 13 U/L (0-41); Albumin Level 4.2 g/dL (3.5-5.2); Alkaline Phosphatase 79 U/L (40-130); Anion Gap 16.4 (5-19); Aspartate Amino Transferase 13 U/L (0-40); Blood Urea Nitrogen 16 mg/dL (8-23); Calcium 9.6 mg/dL (8.5-10.5); Carbon Dioxide 22 mmol/L (22-29); Chloride 105 mmol/L (98-107); Creatine Phosphokinase 66 U/L (39-308); Creatinine Clr Calc Pharmacy 98.9684; Globulin 2.2 g/dL (1.3-4.6); Glomerular Filtration Rate 86.1 mL/min (90-130); Glucose 101 mg/dL (65-115); NT Pro B Type Natriuretic Pept < 36 pg/mL (0-125); Osmolality Calculated 289 mOsm/kg (285-295); Potassium 4.4 mmol/L (3.5-5.1); Sodium 139 mmol/L (136-145); Total Bilirubin 0.2 mg/dL (0.15-1.2); Total Protein 6.4 g/dL (6.6-8.7)
[2024-08-23 22:40] VITALS: BP 128/63; PULSE 51; RESP 16; O2SAT 96
[2024-08-23] MEDS: ketorolac 30 mg/mL INJ IVP (22:58)
--- NOTE | 2024-08-23 23:15 | ECG_ITS ---
[facility] Test Date: 2024-08-23 Pat Name: Shawn Maldonado Department: Room: Gender: Male Electro Tech: : 1965 Requested By: Kamaljit Chavez Order Number: [id number] Carrie MD: BRADLEY HUFF Measurements Intervals [place] Rate: 49 P: 66 [place]: 179 QRS: 79 QRSD: 97 T: 81 QT: 448 QTc: 405 Interpretive Statements SINUS BRADYCARDIA Compared to ECG 08/23/2024 20:55:25 Sinus rhythm no longer present Electronically Signed On 08-26-2024 23:02:38 CDT by BRADLEY HUFF [email or web address] [id number]
[2024-08-23 23:52] LABS: Troponin 5 2HR 6.39 ng/L (0-15)
[2024-08-23 23:54] LABS: Troponin 5 2HR Delta -0.61 ABS# (0-10)
[2024-08-24] MEDS: LORazepam 1 MG/0.5 ML injection IVP (00:15)
[2024-08-24 00:51] VITALS: BP 120/64; PULSE 56; RESP 16; O2SAT 94
== END 2024-08-24 00:53 | disposition home or self-care (01) ==
PROVIDERS: Emergency Provider Emergency Medicine; PCP Family Medicine
DX: R07.89 Other chest pain (principal); Z72.0 Tobacco use; E78.5 Hyperlipidemia, unspecified; I25.10 Atherosclerotic heart disease of native coronary artery without angina pectoris
CPT/HCPCS: 36415; 36600; 71045; 80053; 82550; 82803; 83880; 84484; 85025; 93005; 96374; 96375; 96376; 99285; J1885; J2060; J2270; J2405

== ENCOUNTER 2024-08-26 06:07 | Emergency (ER) | payer SELFPAY ==
[2024-08-26] VITALS (11 sets, daily range): BP systolic 116–147; BP diastolic 68–83; PULSE 52–67; RESP 16–18; TEMP 36.7; O2SAT 90–100; BMI 22.4
--- NOTE | 2024-08-26 06:23 | XRR_ITS ---
PROCEDURE INFORMATION: Exam: XR Chest Exam date and time: 08/26/2024 6:23 AM Age: 58 years old Clinical indication: Cough and dyspnea; Additional info: Dyspnea/cough TECHNIQUE: Imaging protocol: Radiologic exam of the chest. Views: 1 view. COMPARISON: CR (CHEST, ) 08/23/2024 9:20 PM FINDINGS: Lungs: Unremarkable. No consolidation. Pleural spaces: Unremarkable. No pleural effusion. No pneumothorax. Heart/Mediastinum: Unremarkable. No cardiomegaly. Bones/joints: Unremarkable. XR/XR chest 1V portable [id number] IMPRESSION: No acute findings.
[2024-08-26 06:31] LABS: Basophils % 0.5 %; Eosinophils # 0.4 10^3/uL (0.0-0.8); Eosinophils % 5.4 %; Lymphocytes # 2.1 10^3/uL (0.8-4.8); Lymphocytes % 26.4 %; Mean Corpuscular Hemoglobin 29.3 pg (27-33); Mean Corpuscular Volume 88.8 fl (82-101); Mean Platelet Volume 8.7 fL (7.4-10.4); Monocytes # 0.8 10^3/uL (0.2-0.9); Monocytes % 10.3 %; Neutrophils # 4.47 10^3/uL (1.8-7.7); Neutrophils % 56.9 %; Nucleated Red Blood Cells % 0 %; Platelet Count 226 10^3/cmm (157-399); Red Blood Count 5.18 10^6/uL (3.85-5.65); Red Cell Distribution Width 12.4 % (12.1-15.1); White Blood Count 7.85 10^3/uL (3.29-11.43)
[2024-08-26 06:44] LABS: Alanine Aminotransferase 13 U/L (0-41); Albumin Level 4.5 g/dL (3.5-5.2); Alkaline Phosphatase 79 U/L (40-130); Aspartate Amino Transferase 14 U/L (0-40); Blood Urea Nitrogen 15 mg/dL (8-23); Calcium 9.5 mg/dL (8.5-10.5); Carbon Dioxide 22 mmol/L (22-29); Chloride 105 mmol/L (98-107); Creatine Phosphokinase 62 U/L (39-308); Creatinine Clr Calc Pharmacy 81.8905; Globulin 2.2 g/dL (1.3-4.6); Glomerular Filtration Rate 68.3 mL/min (90-130); Glucose 82 mg/dL (65-115); Osmolality Calculated 288 mOsm/kg (285-295); Sodium 139 mmol/L (136-145); Total Bilirubin 0.3 mg/dL (0.15-1.2); Total Protein 6.7 g/dL (6.6-8.7)
[2024-08-26 06:46] LABS: Anion Gap 16.6 (5-19); Potassium 4.6 mmol/L (3.5-5.1); Troponin(5th) Baseline < 6 ng/L (0-15)
--- NOTE | 2024-08-26 06:48 | ED_ITS ---
HPI - General Adult 2 General: Chief complaint: Nausea/Vomiting/Diarrhea Stated complaint: trouble waking up, GUALLPA, nausea, chest tighness Time Seen by Provider: 08/26/24 06:21 History of Present Illness: 58-year-old male presents to the emergen cy room with continued complaints of headache and chest pain. Pain is worse when he takes a deep breath or cough. Patient is a longtime smoker is a history of COPD. He was seen 3 days ago at that time he was evaluated for acute coronary syndrome his tropes were negative his EKG does not show any changes chest x-ray was also negative he was discharged home advised to use the oxycodone he previously been prescribed for the chest discomfort. He states the pain is persisting. He has not had a productive cough no hemoptysis. He has had headache and nausea. Associated symptoms: Reports chest pain; Deny dyspnea or rash Related Data Previous Rx's ?Medication ?Instructions ?Recorded ketorolac 10 mg tablet 10 mg PO TID PRN pain #10 ta bs 08/24/24 oxycodone-acetaminophen 5 mg-325 1 tab PO Q8H PRN pain #7 tabs 08/24/24 mg tablet diclofenac sodium 75 mg 75 mg PO Q12H PRN pain #20 t abs 08/26/24 tablet,delayed release Allergies Allergy/AdvReac Type Severity Reaction Status Date / Time No Known Allergies Allergy Verified 08/26/24 06:24 Review of Systems 2 Const: Denies: fever(s) or chills Card: Reports: chest pain Resp: Reports: non-productive cough and pain on inspiration; Denies: dyspnea GI: Denies: abdominal pain : Denies: dysuria, urinary frequency or urinary urgency Musc: Denies: neck pain or back pain Skin/Breast: Denies: rash PFSH ED 2 PFSH: Medical History Dyslipidemia FH: premature coronary heart disease Smoking addiction Unstable angina Chest pain No significant past medical history Surgical History H/O knee surgery Family History Other CAD (coronary artery disease) Social History Smoking and tobacco/nicotine status: current every day tobacco/nicotine user Physical Exam 2 Const: GENERAL APPEARANCE: cooperative ORIENTATION/CONSCIOUSNESS: Yes awake, Yes oriented to person, Yes oriented to place and Yes oriented to time HENMT: COMMON NORMALS: normocephalic, atraumatic and hearing grossly normal bilaterally HEAD & SCALP: normocephalic and atraumatic Resp: COMMON NORMALS: normal respiratory effort, No retractions, No use of accessory muscles and clear to auscultation bilaterally AUSCULTATION: clear to auscultation bilaterally Cardio: COMMON NORMALS: regular rate, regular rhythm and No murmurs present (Cardio) RATE: regular rate RHYTHM: regular rhythm GI: COMMON NORMALS: Soft to palpation and No hepatosplenomegaly present A USCULTATION: Yes normoactive bowel sounds PALPATION: Yes Soft to palpation, No Tenderness to palpation present (GI), No Guarding due to palpation present (GI) and Yes No hepatosplenomegaly present Extremity: COMMON NORMALS: normal to inspection, capillary refill normal, no clubbing, cyanosis or edema, no calf tenderness and no pedal edema Neuro: SENSORIUM/ORIENTATION: Yes oriented to person, Yes oriented to place and Yes oriented to time Skin: COMMON NORMALS: no rashes or lesions noted GENERAL SKIN EXAM: no rashes or lesions noted Course 2 Vital Signs: Vital signs: Vital Signs Temperature 98.1 F 08/26/24 06:13 Pulse Rate 60 08/26/24 11:58 Respiratory Rate 18 08/26/24 10:23 Blood Pressure 116/68 08/26/24 11:58 Pulse Oximetry 96 08/26/24 11:58 Oxygen Delivery Me thod Room Air 08/26/24 10:00 MDM - General Adult Medical Decision Making Headache and chest discomfort improved with pain medications. CTA done no PE no dissecting aneurysm no sign of acute coronary syndrome previous ER note reviewed as well. Will discharge patient home. Discussed with him multiple potential etiologies no acute emergent findings at this time suspect he may have acute viral illness driving some of this. Will have him follow-up with his primary care doctor as needed. CT of the head was done as well this was also negative Differential Diagnosis Acute coronary syndrome, dissecting aortic aneurysm, pneumothorax, pneumonia, pulmonary embolism, headache, intracranial bleeding. Medical Records I reviewed the patient's medical records. Lab Data I reviewed the patient's lab results. 08/26/24 06:19 08/26/24 06:19 Radiology Impressions Chest X-Ray 08/26/24 06:23 IMPRESSION: No acute findings. Chest CTA 08/26/24 08:07 IMPRESSION: 1. No evidence of pulmonary embolus. 2. Lungs are well aerated. 3. Stable 6.6 mm RIGHT lower lobe pulmonary nodule unchanged since 2021. Head CT 08/26/24 09:26 IMPRESSION: Residual contrast in the intracranial vessels due to prior PE study 1. No evidence of intracranial hemorrhage or mass effect. 2. No acute intracranial findings. Laboratory Results WBC 7.85 10^3/uL (3.29-11.43) 08/26/24 06:19 RBC 5.18 10^6/uL (3.85-5.65) 08/26/24 06:19 Hgb 15.20 g/dL (11.27-16.99) 08/26/24 06:19 Hct 46.0 % (37-53) 08/26/24 06:19 MCV 88.8 fl (82-101) 08/26/24 06:19 MCH 29.3 pg (27-33) 08/26/24 06:19 MCHC 33.0 g/dL (30-55) 08/26/24 06:19 RDW 12.4 % (12.1-15.1) 08/26/24 06:19 Plt Count 226 10^3/cmm (157-399) 08/26/24 06:19 MPV 8.7 fL (7.4-10.4) 08/26/24 06:19 Neut % (Auto) 56.9 % 08/26/24 06:19 Lymph % (Auto) 26.4 % 08/26/24 06:19 [place] % (Auto) 10.3 % 08/26/24 06:19 Eos % (Auto) 5.4 % 08/26/24 06:19 Baso % (Auto) 0.5 % 08/26/24 06:19 Neut # (Auto) 4.47 10^3/uL (1.8-7.7) 08/26/24 06:19 Lymph # (Auto) 2.1 10^3/uL (0.8-4.8) 08/26/24 06:19 [place] # (Auto) 0.8 10^3/uL (0.2-0.9) 08/26/24 06:19 Eos # (Auto) 0.4 10^3/uL (0.0-0.8) 08/26/24 06:19 Baso # (Auto) 0.0 10^3/uL (0.0-0.1) 08/26/24 06:19 Nucleated RBC % (auto) 0 % 08/26/24 06:19 Nucleated RBCs # 0.0 /100WBC 08/26/24 06:19 D-Dimer 1.65 ug/mLFEU (0-0.59) H 08/26/24 06:19 Sodium 139 mmol/L (136-145) 08/26/24 06:19 Potassium 4.6 mmol/L (3.5-5.1) 08/26/24 06:19 Chloride 105 mmol/L (98-107) 08/26/24 06:19 Carbon Dioxide 22 mmol/L (22-29) 08/26/24 06:19 Anion Gap 16.6 (5-19) 08/26/24 06:19 BUN 15 mg/dL (8-23) 08/26/24 06:19 Creatinine 1.1 mg/dL (0.7-1.2) 08/26/24 06:19 GFR Calculation 68.3 mL/min (90-130) L 08/26/24 06:19 Glucose 82 mg/dL (65-115) 08/26/24 06:19 Calculated Osmolality 288 mOsm/kg (285-295) 08/26/24 06:19 Calcium 9.5 mg/dL (8.5-10.5) 08/26/24 06:19 Total Bilirubin 0.3 mg/dL (0.15-1.2) 08/26/24 06:19 AST 14 U/L (0-40) 08/26/24 06:19 ALT 13 U/L (0-41) 08/26/24 06:19 Alkaline Phosphatase 79 U/L (40-130) 08/26/24 06:19 Creatine Kinase 62 U/L (39-308) 08/26/24 06:19 Troponin T Baseline < 6 ng/L (0-15) 08/26/24 06:19 Troponin T 120 Minute 6.82 ng/L (0-15) 08/26/24 07:55 Delta Troponin T 0.55265 ABS# (0-10) 08/26/24 07:55 Total Protein 6.7 g/dL (6.6-8.7) 08/26/24 06:19 Albumin 4.5 g/dL (3.5-5.2) 08/26/24 06:19 Globulin 2.2 g/dL (1.3-4.6) 08/26/24 06:19 Urine Color Yellow (Yellow) 08/26/24 07:18 Urine Appearance Cloudy (CLEAR) A 08/26/24 07:18 Urine pH 8.5 (5-7) A 08/26/24 07:18 Ur Specific [place] 1.015 (1.005-1.030) 08/26/24 07:18 Urine Protein Negative (Negative) 08/26/24 07:18 Urine Glucose (UA) Negative (Normal) 08/26/24 07:18 Urine Ketones Negative (Negative) 08/26/24 07:18 Urine Blood Negative (Negative) 08/26/24 07:18 Urine Nitrate Negative (Negative) 08/26/24 07:18 Urine Bilirubin Negative (Negative) 08/26/24 07:18 Urine Urobilinogen 1.0 mg/dL (Negative) 08/26/24 07:18 Ur Leukocyte Esterase Negative (Negative) 08/26/24 07:18 Urine RBC 3-5 /hpf (0-2) 08/26/24 07:18 Urine WBC 0-5 /hpf (0-5) 08/26/24 07:18 Ur Squamous Epith Cells 0-5 /hpf (0-5) 08/26/24 07:18 Amorphous Sediment Not Reportable 08/26/24 07:18 Urine Bacteria None seen /hpf (NONE) 08/26/24 07:18 Hyaline Casts 0-4 /lpf H 08/26/24 07:18 Influenza A (PCR) Negative (Negative) 08/26/24 07:28 Influenza Type B (PCR) Negative (Negative) 08/26/24 07:28 RSV (PCR) Negative (Negative) 08/26/24 07:28 SARS-CoV-2 (PCR) Negative (Negative) 08/26/24 07:28 All radiology interpretation(s) finalized by discharge Discharge Plan Discharge Patient Disposition: Home Clinical Impression: Pleuritic chest pain, Headache Condition: Stable Prescriptions: New diclofenac sodium 75 mg tablet,delayed release (DR/EC) 75 mg PO Q12H PRN (Reason: pain) Qty: 20 0RF No Action oxycodone-acetaminophen 5-325 mg tablet 1 tab PO Q8H PRN (Reason: pain) Qty: 7 0RF ketorolac 10 mg tablet 10 mg PO TID PRN (Reason: pain) Qty: 10 0RF Discharge Orders: Discharge ED (Routine); Ordered 08/26/24 Ordered By: Al Avila Referrals: Corina Bustillo MD [Primary Care Provider, Family Practice] Discharge Diet: Usual diet Discharge Activity: Increase activity as tolerated Patient Instructions: Opioid Safety, Pain Management Activity Restrictions/Additional Instructions: Thank you for choosing [facility] for your healthcare needs today. It is very important that you follow up as instructed or that you return to the Emergency Department should you have concerns or if your condition changes or worsens in any way. You are seen in the emergency room with complaints of chest discomfort and headache. Your symptoms did resolve upon with medications given your laboratory tests were unremarkable CTA of your chest did not show any pulmonary embolism dissecting aneurysm. EKG and cardiac enzymes were also normal there is no sign of acute coronary syndrome. Suspect some of this is pleuritic chest pain. May be related to a viral infection which may also cause some of your headache symptoms. Would recommend that you switch from Toradol to diclofenac. You can continue to use the oxycodone. Follow-up with your primary care doctor if you have persistent symptoms Stand Alone Forms: Work/School Release Print Language: Indonesian Coding Level of Care Code ED Recordist Chief for Rolando Aguayo
[2024-08-26] MEDS: dexamethasone 10 mg/mL INJ IVP (07:11)
[2024-08-26] MEDS: morphine 4 mg/mL SDV 1 mL IVP ×2 (07:11→10:23)
[2024-08-26] MEDS: ketorolac 30 mg/mL INJ IVP (07:11)
[2024-08-26 07:18] LABS: D Dimer 1.65 ug/mLFEU (0-0.59)
--- NOTE | 2024-08-26 07:19 | ECG_ITS ---
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
[2024-08-26 07:49] LABS: Bilirubin Urine Negative (Negative); Blood Urine Negative (Negative); Glucose Urine UA Negative (Normal); Ketones Urine Negative (Negative); Leukocyte Esterase Urine Negative (Negative); Nitrate Urine Negative (Negative); Protein Urine Negative (Negative); Specific Gravity, Urine 1.015 (1.005-1.030); Urine Appearance Cloudy (CLEAR); Urine Color Yellow (Yellow); pH Urine 8.5 (5-7)
[2024-08-26 07:52] LABS: Add Urine Microscopic? YES; Bacteria Urine None Seen /hpf; Hyaline Casts Urine 0-4 /lpf; Squamous Epithelial Cell Urine 0-5 /hpf (0-5); WBC Urine 0-5 /hpf (0-5)
--- NOTE | 2024-08-26 08:07 | CT_ITS ---
WS: [id number] CTA OF THE CHEST WITH PULMONARY EMBOLISM PROTOCOL TECHNIQUE: High-resolution contrast enhanced CTA of the chest with coronal and sagittal reformatted images with pulmonary embolism protocol. MIP images are also reviewed. CLINICAL INFORMATION: Chest pain elevated D-dimer COMPARISON: None. DLP: 311.[address] scans at [facility] use at least one of these dose optimization techniques: automated exposure control; mA and/or kV adjustment per patient size (includes targeted exams where dose is matched to clinical indication); or iterative reconstruction. FINDINGS: Proximal main pulmonary arteries are normal. Normal segmental and subsegmental pulmonary arteries. No evidence of pulmonary embolus. No mediastinal or hilar lymphadenopathy. No axillary lymphadenopathy. Adrenal glands are normal. Tiny esophageal hiatal hernia. Moderate thoracic kyphosis. RIGHT lower lobe ovoid nodule measuring 6.6 mm. This is stable since 2021. CT/CT angio chest PE protcl [id number] IMPRESSION: 1. No evidence of pulmonary embolus. 2. Lungs are well aerated. 3. Stable 6.6 mm RIGHT lower lobe pulmonary nodule unchanged since 2021.
[2024-08-26 08:22] LABS: Troponin 5 2HR 6.82 ng/L (0-15); Troponin 5 2HR Delta 0.82001 ABS# (0-10)
--- NOTE | 2024-08-26 08:23 | ECG_ITS ---
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
[2024-08-26 08:26] LABS: Influenza A NEGATIVE (Negative); Influenza B NEGATIVE (Negative); Respiratory Syncytial Virus Ce NEGATIVE (Negative); SARS-CoV-2 PCR NEGATIVE (Negative)
[2024-08-26] MEDS: iohexol 350 mg/mL 500 mL Btl (per mL) IV (08:36)
--- NOTE | 2024-08-26 09:26 | CT_ITS ---
WS: [id number] CT HEAD TECHNIQUE: Noncontrast CT of the head obtained from the skullbase to the vertex. CLINICAL INFORMATION: headache COMPARISON: None. DLP: 1271.[address] scans at [facility] use at least one of these dose optimization techniques: automated exposure control; mA and/or kV adjustment per patient size (includes targeted exams where dose is matched to clinical indication); or iterative reconstruction. FINDINGS: No evidence of intracranial hemorrhage or mass effect. Ventricular system and basal cisterns are patent. Mild small vessel changes. No extra-axial fluid collections. No evidence of mass or mass effect. Paranasal sinuses and mastoid air cells are well aerated. .Normal visualized soft tissues. CT/CT head wo con* [id number] IMPRESSION: Residual contrast in the intracranial vessels due to prior PE study 1. No evidence of intracranial hemorrhage or mass effect. 2. No acute intracranial findings.
[2024-08-26] MEDS: diphenhydrAMINE 50 mg/mL SDV 1mL IVP (10:05)
== END 2024-08-26 11:59 | disposition home or self-care (01) ==
PROVIDERS: Emergency Provider Family Medicine; PCP Family Medicine
DX: R07.81 Pleurodynia (principal); R51.9 Headache, unspecified; Z11.52 Encounter for screening for COVID-19; Z72.0 Tobacco use; E78.5 Hyperlipidemia, unspecified
CPT/HCPCS: 36415; 70450; 71045; 71275; 80053; 81001; 82550; 84484; 85025; 85378; 87637; 93005; 96374; 96375; 96376; 99285; J1100; J1200; J1885; J2270

== ENCOUNTER 2024-10-09 06:15 | Outpatient (CLI) | payer SELFPAY ==
--- NOTE | 2024-10-09 06:15 | USCV_ITS ---
Shawn Maldonado Age: 58 Gender: M : 1965 Exam Date: 10/09/2024 07:08 Ordering Phys: Corina Bustillo MD Technologist: John Richardson Exam Location: [facility] – [place] Indication: family hx of ao stenosis BP: 116 / 68 HR: 49 Rhythm: Sinus Technical Quality: Adequate MEASUREMENTS (Male / Female) Normal Values 2D ECHO LV Diastolic Diameter PLAX 3.0 cm 4.2 - 5.9 / 3.9 - 5.3 cm IVS Diastolic Thickness 1.1 cm 0.6 - 1.0 / 0.6 - 0.9 cm IVS Systolic Thickness 1.2 cm LVPW Diastolic Thickness 1.2 cm 0.6 - 1.0 / 0.6 - 0.9 cm LVPW Systolic Thickness 1.3 cm LVOT Diameter 2.1 cm LV Ejection Fraction 2D Teich 57.6 % LV Ejection Fraction MOD 4C 61.8 % LV Ejection Fraction MOD 2C 68.3 % LV Ejection Fraction 2C AL 68.1 % LA Diameter 3.2 cm RA Systolic Volume 4C AL 20.1 ml RA Systolic Volume 4C MOD 20.3 ml LA Sys Volume AL 29.2 cm cubed LA Sys Volume Index AL 14.6 cm cubed/m squared Aorta at Sinotubular Diameter 2.6 cm IVC Diameter 1.9 cm M-MODE LA Ao Ratio MM 0.9 AV Cusp Separation MM 1.5 cm DOPPLER AV Peak Velocity 106.0 cm/s LVOT Peak Velocity 100.0 cm/s AV Area Cont Eq vti 2.5 cm squared AV Area Cont Eq pk 3.1 cm squared MV Peak Velocity 109.0 cm/s MV Area PHT 3.3 cm squared Mitral E to A Ratio 1.3 TR Peak Velocity 237.0 cm/s TR Peak Gradient 22.5 mmHg TR Mean Velocity 200.0 cm/s TR Mean Gradient 16.5 mmHg TR Velocity Time Integral 84.3 cm PV Peak Velocity 61.0 cm/s RV Ejection Time 0.3 s FINDINGS Left Ventricle Normal left ventricular size and systolic function, EF 68%.. Mild left ventricular hypertrophy. No regional wall motion abnormalities. Right Ventricle The right ventricle is normal in size and function. Right Atrium The right atrium is normal in size. Left Atrium The left atrium is normal in size. Mitral Valve Mild mitral valve regurgitation. Aortic Valve Thickened aortic valve. Tricuspid Valve No gross abnormalities noted . Pulmonic Valve No gross abnormalities noted Pericardium Normal pericardium without effusion. Aorta Normal aortic annulus size. IVC Normal IVC dimension with >50% respiratory change of the inferior vena cava. CONCLUSIONS Normal left ventricular size and systolic function, EF 68%.. Mild left ventricular hypertrophy. No regional wall motion abnormalities. Mild mitral valve regurgitation. Thickened aortic valve. There is no pericardial effusion. There are no intracardiac masses. Compared to study from 02/01/2022, there may not be a significant change Dr Harry Rivera MD FACC (Electronically Signed) Final Date: 09 October 2024 17:23 S
== END 2024-10-09 06:16 | disposition home or self-care (01) ==
PROVIDERS: PCP Family Medicine; Visit Provider Family Medicine
DX: R93.1 Abnormal findings on diagnostic imaging of heart and coronary circulation (principal); Z82.49 Family history of ischemic heart disease and other diseases of the circulatory system; I34.0 Nonrheumatic mitral (valve) insufficiency; I35.8 Other nonrheumatic aortic valve disorders
CPT/HCPCS: 93306